=== PATIENT | male | born 1975 | race Caucasian/White ===

== ENCOUNTER → 2020-06-13 16:18 | Outpatient (CLI) | payer OTHER, SELFPAY ==
[2014-04-21 20:41] VITALS: BMI 38.0
[2020-06-13 17:47] LABS: Absolute Lymphocyte Count 2.24 X10^3/uL (0.83-4.51); Absolute Neutrophil Count 5.1 X10^3/uL (2.0-7.7); Basophil# 0.03 X10^3/uL; Basophil% 0.4 % (0-1); Eosinophil# 0.23 X10^3/uL; Eosinophils% 2.8 % (0-5); Hematocrit 45.9 % (40-54); Hemoglobin 14.7 g/dL (13.0-16.5); Lymphocyte # 2.24 X10^3/ul (4.0); Lymphocyte % 26.9 % (19-41); Mean Corpuscular Hgb 30.2 pg (27.0-32.0); Mean Corpuscular Volume 94.4 fL (80-94); Mean Platelet Vol. 10.5 fl (6.2-12.0); Monocyte% 8.4 % (0-10); NRBC Flagged by Analyzer 0 % (0-5); Neutrophil % 61.3 % (47-70); Platelet Count 211 K/mm3 (150-450); RBC Distribution Width CV 13.2 % (11.6-14.6); RBC Distribution Width SD 46.1 fl (35.1-43.9); Red Blood Count 4.86 M/mm3 (4.6-6.2); White Blood Count 8.3 K/mm3 (4.4-11.0)
[2020-06-13 18:20] LABS: Microalbumin,Random Urine < 5.0 mg/L (NO RANGE EST.)
[2020-06-13 18:21] LABS: AST(SGOT) 27 U/L (15-37); Alanine Aminotransfer ALT/SGPT 78 U/L (16-61); Albumin, Serum 3.8 g/dL (3.2-5.0); Alkaline Phosphatase 40 U/L (45-117); Anion Gap 4 (5-15); BUN 16 mg/dL (7-18); Calcium,Total 9.2 mg/dL (8.5-10.1); Chloride 106 mmol/L (98-107); EST Glomerular Filtration Rate 86 mL/min (>60); Est Glom Filt Rate - Afr Amer 105 mL/min (>60); Globulin 3.7 g/dL (2.2-4.2); Glucose 206 mg/dL (74-106); Potassium 4.1 mmol/L (3.5-5.1); Protein, Total 7.5 g/dL (6.4-8.2); Sodium Level 137 mmol/L (136-145); Thyroid Stim Hormone (TSH) 0.39 uIU/mL (0.358-3.74)
== END ==
PROVIDERS: PCP Family Medicine; Referring Provider Family Medicine; Visit Provider Family Medicine
DX: I10 Essential (primary) hypertension (principal); E66.01 Morbid (severe) obesity due to excess calories; Z68.38 Body mass index [BMI] 38.0-38.9, adult; E11.65 Type 2 diabetes mellitus with hyperglycemia
CPT/HCPCS: 36415; 80053; 82043; 82570; 84443; 85025

== ENCOUNTER → 2020-08-07 16:14 | Outpatient (CLI) | payer OTHER, SELFPAY ==
[2014-04-21 20:41] VITALS: BMI 38.0
[2020-08-07 18:19] LABS: AST(SGOT) 21 U/L (15-37); Alanine Aminotransfer ALT/SGPT 41 U/L (16-61); Albumin, Serum 3.8 g/dL (3.2-5.0); Alkaline Phosphatase 32 U/L (45-117); Anion Gap 6 (5-15); BUN 24 mg/dL (7-18); BUN/Creat Ratio 24.2 RATIO (10-20); Calcium,Total 8.9 mg/dL (8.5-10.1); Chloride 108 mmol/L (98-107); Creatinine, Serum 0.99 mg/dL (0.70-1.30); EST Glomerular Filtration Rate 87 mL/min (>60); Est Glom Filt Rate - Afr Amer 105 mL/min (>60); Glucose 115 mg/dL (74-106); Potassium 3.9 mmol/L (3.5-5.1); Protein, Total 7.8 g/dL (6.4-8.2); Sodium Level 138 mmol/L (136-145)
== END ==
PROVIDERS: PCP Family Medicine; Referring Provider Family Medicine; Visit Provider Family Medicine
DX: E11.59 Type 2 diabetes mellitus with other circulatory complications (principal)
CPT/HCPCS: 36415; 80053

== ENCOUNTER → 2021-09-24 | Outpatient (CLI) | payer OTHER, SELFPAY ==
[2021-09-24 17:58] LABS: Absolute Lymphocyte Count 1.77 X10^3/uL (0.83-4.51); Absolute Neutrophil Count 4.7 X10^3/uL (2.0-7.7); Basophil# 0.03 X10^3/uL; Basophil% 0.4 % (0-1); Eosinophil# 0.19 X10^3/uL; Eosinophils% 2.6 % (0-5); Hematocrit 45.3 % (40-54); Hemoglobin 15.1 g/dL (13.0-16.5); Lymphocyte # 1.77 X10^3/ul (0.83-4.51); Lymphocyte % 23.9 % (19-41); Mean Corp Hgb Conc 33.3 g/dL (32-36); Mean Corpuscular Hgb 30.3 pg (27.0-32.0); Mean Corpuscular Volume 90.8 fL (80-94); Mean Platelet Vol. 10.5 fl (6.2-12.0); Monocyte# 0.72 X10^3/uL; Monocyte% 9.7 % (0-10); NRBC Flagged by Analyzer 0 % (0-5); Neutrophil # 4.68 X10^3/uL (2.7-7.7); Platelet Count 177 K/mm3 (150-450); RBC Distribution Width CV 13.1 % (11.6-14.6); RBC Distribution Width SD 43.3 fl (35.1-43.9); Red Blood Count 4.99 M/mm3 (4.6-6.2); White Blood Count 7.4 K/mm3 (4.4-11.0)
[2021-09-24 18:53] LABS: AST(SGOT) 37 U/L (15-37); Alanine Aminotransfer ALT/SGPT 74 U/L (16-61); Albumin, Serum 3.7 g/dL (3.2-5.0); Alkaline Phosphatase 50 U/L (45-117); Anion Gap 6 (5-15); BUN 15 mg/dL (7-18); BUN/Creat Ratio 15.4 RATIO (10-20); Calcium,Total 9.1 mg/dL (8.5-10.1); Chloride 102 mmol/L (98-107); Creatinine, Serum 0.97 mg/dL (0.70-1.30); EST Glomerular Filtration Rate 89 mL/min (>60); Est Glom Filt Rate - Afr Amer 107 mL/min (>60); Globulin 3.8 g/dL (2.2-4.2); Glucose 335 mg/dL (74-106); Potassium 3.9 mmol/L (3.5-5.1); Protein, Total 7.5 g/dL (6.4-8.2); Sodium Level 134 mmol/L (136-145); Thyroid Stim Hormone (TSH) 0.71 uIU/mL (0.358-3.74)
== END | disposition home or self-care (01) ==
LOC: MFPLAB 16:45
PROVIDERS: PCP Family Medicine; Referring Provider Family Medicine; Visit Provider Family Medicine
DX: E11.59 Type 2 diabetes mellitus with other circulatory complications (principal); E11.22 Type 2 diabetes mellitus with diabetic chronic kidney disease; E66.01 Morbid (severe) obesity due to excess calories; F17.200 Nicotine dependence, unspecified, uncomplicated; N18.2 Chronic kidney disease, stage 2 (mild)
CPT/HCPCS: 36415; 80053; 84443; 85025

== ENCOUNTER → 2022-06-12 | Outpatient (CLI) | payer BC, SELFPAY ==
[2022-06-12 08:43] LABS: Bacteria 0 SEEN /hpf (None Seen); Mucous, Urine 0 SEEN /hpf (<or=2+); Red Blood Cells-Urine 0 SEEN /hpf (0-5); Squamous Epithelial Cells - UA 0 SEEN /hpf (0-5); White Blood Cells 0 SEEN /hpf (0-5)
[2022-06-12 10:15] LABS: Absolute Lymphocyte Count 1.69 X10^3/uL (0.83-4.51); Absolute Neutrophil Count 5.6 X10^3/uL (2.0-7.7); Basophil# 0.03 X10^3/uL; Basophil% 0.4 % (0-1); Eosinophil# 0.31 X10^3/uL; Eosinophils% 3.6 % (0-5); Hematocrit 50.2 % (40-54); Hemoglobin 16.3 g/dL (13.0-16.5); Lymphocyte # 1.69 X10^3/ul (0.83-4.51); Lymphocyte % 19.8 % (19-41); Mean Corp Hgb Conc 32.5 g/dL (32-36); Mean Corpuscular Hgb 30.4 pg (27.0-32.0); Mean Corpuscular Volume 93.5 fL (80-94); Mean Platelet Vol. 10.3 fl (6.2-12.0); Monocyte# 0.89 X10^3/uL; Monocyte% 10.4 % (0-10); NRBC Flagged by Analyzer 0 % (0-5); Neutrophil % 65.4 % (47-70); Platelet Count 203 K/mm3 (150-450); RBC Distribution Width CV 14.2 % (11.6-14.6); RBC Distribution Width SD 48.6 fl (35.1-43.9); Red Blood Count 5.37 M/mm3 (4.6-6.2); White Blood Count 8.6 K/mm3 (4.4-11.0)
[2022-06-12 10:16] LABS: Color, Urine Yellow (Yellow); Glucose, Dipstick 1000 mg/dl (Normal); Ketone-Dipstick Negative (Negative); Leukocyte Esterase-Dipstick Negative /ul (Negative); Nitrite-Dipstick Negative (Negative); Occult Blood-Urine Negative /ul (Negative); Protein-Dipstick Negative (Negative); Specific Gravity, Urine 1.015 (1.002-1.030); Urine Bilirubin Dipstick Negative (Negative); Urine Clarity Clear (Clear); Urine Urobilinogen Normal (Normal)
[2022-06-12 10:29] LABS: ALB/GLOB Ratio 0.9 RATIO (0.9-2.4); AST(SGOT) 34 U/L (15-37); Alanine Aminotransfer ALT/SGPT 68 U/L (16-61); Albumin, Serum 3.6 g/dL (3.2-5.0); Alkaline Phosphatase 51 U/L (45-117); Anion Gap 3 (5-15); BUN 12 mg/dL (7-18); BUN/Creat Ratio 13.7 RATIO (10-20); Chloride 109 mmol/L (98-107); Creatinine, Serum 0.88 mg/dL (0.70-1.30); EST Glomerular Filtration Rate 100 mL/min (>60); Est Glom Filt Rate - Afr Amer 121 mL/min (>60); Glucose 211 mg/dL (74-106); PSA,Total- Diagnostic 1.89 ng/mL (0.0-4.0); Potassium 4.3 mmol/L (3.5-5.1); Protein, Total 7.6 g/dL (6.4-8.2); Sodium Level 138 mmol/L (136-145)
== END | disposition home or self-care (01) ==
LOC: MFPLAB 08:42
PROVIDERS: PCP Family Medicine; Referring Provider Family Medicine; Visit Provider Family Medicine
DX: R36.1 Hematospermia (principal); E11.65 Type 2 diabetes mellitus with hyperglycemia; E66.01 Morbid (severe) obesity due to excess calories
CPT/HCPCS: 36415; 80053; 81001; 84153; 85025

== ENCOUNTER → 2024-03-21 | Outpatient (CLI) | payer OTHER, SELFPAY ==
[2024-03-21 10:52] LABS: Absolute Lymphocyte Count 1.95 X10^3/uL (0.83-4.51); Absolute Neutrophil Count 5.9 X10^3/uL (2.0-7.7); Basophil# 0.04 X10^3/uL; Basophil% 0.5 % (0-1); Eosinophil# 0.15 X10^3/uL; Eosinophils% 1.7 % (0-5); Hematocrit 50.3 % (40-54); Hemoglobin 16.2 g/dL (13.0-16.5); Lymphocyte # 1.95 X10^3/ul (0.83-4.51); Lymphocyte % 22.4 % (19-41); Mean Corp Hgb Conc 32.2 g/dL (32-36); Mean Corpuscular Hgb 29.6 pg (27.0-32.0); Monocyte# 0.61 X10^3/uL; NRBC Flagged by Analyzer 0 % (0-5); Neutrophil # 5.93 X10^3/uL (2.7-7.7); Neutrophil % 68.1 % (47-70); Platelet Count 192 K/mm3 (150-450); RBC Distribution Width SD 43.9 fl (35.1-43.9); Red Blood Count 5.47 M/mm3 (4.6-6.2); White Blood Count 8.7 K/mm3 (4.4-11.0)
[2024-03-21 10:59] LABS: ALB/GLOB Ratio 0.9 RATIO (0.9-2.4); AST(SGOT) 15 U/L (15-37); Alanine Aminotransfer ALT/SGPT 37 U/L (16-61); Albumin, Serum 3.6 g/dL (3.2-5.0); Alkaline Phosphatase 43 U/L (45-117); Anion Gap 5 (5-15); BUN 14 mg/dL (7-18); BUN/Creat Ratio 16.5 RATIO (10-20); Calcium,Total 9.3 mg/dL (8.5-10.1); Chloride 108 mmol/L (98-107); Cholesterol 228 mg/dL (200); Creatinine, Serum 0.85 mg/dL (0.70-1.30); EST Glomerular Filtration Rate 103 mL/min (>60); Est Glom Filt Rate - Afr Amer 125 mL/min (>60); Globulin 4.1 g/dL (2.2-4.2); Glucose 169 mg/dL (74-106); High Density Lipoprotein 42 mg/dL; Potassium 4.3 mmol/L (3.5-5.1); Protein, Total 7.7 g/dL (6.4-8.2); Sodium Level 136 mmol/L (136-145)
[2024-03-21 11:54] LABS: Microalbumin,Random Urine 18.1 mg/L (NO RANGE EST.)
== END | disposition home or self-care (01) ==
PROVIDERS: PCP Family Medicine; Referring Provider Family Medicine; Visit Provider Family Medicine
DX: E11.65 Type 2 diabetes mellitus with hyperglycemia (principal)
CPT/HCPCS: 36415; 80053; 82043; 82465; 82570; 83718; 85025

== ENCOUNTER → 2024-03-24 | Outpatient (CLI) | payer OTHER, SELFPAY ==
--- NOTE | 2024-03-24 15:56 | RAD_ITS ---
HISTORY: shortness of breath and tachycardia. TECHNIQUE: XR Chest 2 Views. COMPARISON: None. FINDINGS: CARDIOMEDIASTINAL BORDERS: Cardiac silhouette within normal limits in size. Mediastinal contour unremarkable. LUNGS: Radiographically clear. PLEURA: No pleural effusion or pneumothorax seen. OSSEOUS STRUCTURES: Spinal osteophytes present. RAD/Chest PA and Lateral IMPRESSION: No acute cardiopulmonary process identified. Electronically Signed: Judith Mckenna MD at 10:10 EST ,
[2024-03-24 17:31] LABS: Absolute Lymphocyte Count 2.34 X10^3/uL (0.83-4.51); Absolute Neutrophil Count 7.8 X10^3/uL (2.0-7.7); Basophil# 0.06 X10^3/uL; Basophil% 0.5 % (0-1); Eosinophil# 0.23 X10^3/uL; Hematocrit 52.6 % (40-54); Hemoglobin 17.3 g/dL (13.0-16.5); Lymphocyte # 2.34 X10^3/ul (0.83-4.51); Lymphocyte % 20.8 % (19-41); Mean Corp Hgb Conc 32.9 g/dL (32-36); Mean Corpuscular Hgb 29.9 pg (27.0-32.0); Mean Corpuscular Volume 90.8 fL (80-94); Mean Platelet Vol. 9.7 fl (6.2-12.0); Monocyte% 7.1 % (0-10); NRBC Flagged by Analyzer 0 % (0-5); Neutrophil # 7.77 X10^3/uL (2.7-7.7); Neutrophil % 69.3 % (47-70); Platelet Count 228 K/mm3 (150-450); RBC Distribution Width SD 43.3 fl (35.1-43.9); Red Blood Count 5.79 M/mm3 (4.6-6.2); White Blood Count 11.2 K/mm3 (4.4-11.0)
[2024-03-24 17:48] LABS: Fibrinogen 358 mg/dl (203-444)
[2024-03-24 17:59] LABS: AST(SGOT) 31 U/L (15-37); Alanine Aminotransfer ALT/SGPT 58 U/L (16-61); Albumin, Serum 4.2 g/dL (3.2-5.0); Alkaline Phosphatase 49 U/L (45-117); Anion Gap 5 (5-15); BUN 17 mg/dL (7-18); BUN/Creat Ratio 19.1 RATIO (10-20); Calcium,Total 9.9 mg/dL (8.5-10.1); Chloride 102 mmol/L (98-107); Creatinine, Serum 0.89 mg/dL (0.70-1.30); D-Dimer Quantitative (DVT/PE) 0.27 FEU/ug/m (0.27-0.49); EST Glomerular Filtration Rate 97 mL/min (>60); Est Glom Filt Rate - Afr Amer 117 mL/min (>60); Globulin 4.2 g/dL (2.2-4.2); Glucose 120 mg/dL (74-106); Potassium 3.8 mmol/L (3.5-5.1); Protein, Total 8.4 g/dL (6.4-8.2); Sodium Level 135 mmol/L (136-145)
== END | disposition home or self-care (01) ==
PROVIDERS: PCP Family Medicine; Referring Provider Family Medicine; Visit Provider Family Medicine
DX: R06.02 Shortness of breath (principal)
CPT/HCPCS: 36415; 71046; 80053; 85025; 85379; 85384; 86140

== ENCOUNTER → 2024-06-23 | Outpatient (CLI) | payer OTHER, SELFPAY ==
[2024-06-23 17:46] LABS: Absolute Lymphocyte Count 2.22 X10^3/uL (0.83-4.51); Absolute Neutrophil Count 11.2 X10^3/uL (2.0-7.7); Basophil# 0.05 X10^3/uL; Basophil% 0.3 % (0-1); Eosinophil# 0.06 X10^3/uL; Eosinophils% 0.4 % (0-5); Hemoglobin 16.7 g/dL (13.0-16.5); Lymphocyte # 2.22 X10^3/ul (0.83-4.51); Lymphocyte % 15.3 % (19-41); Mean Corp Hgb Conc 33.4 g/dL (32-36); Mean Corpuscular Hgb 30.1 pg (27.0-32.0); Mean Corpuscular Volume 90.3 fL (80-94); Mean Platelet Vol. 9.6 fl (6.2-12.0); Monocyte% 5.5 % (0-10); NRBC Flagged by Analyzer 0 % (0-5); Neutrophil # 11.22 X10^3/uL (2.7-7.7); Neutrophil % 77.6 % (47-70); Platelet Count 201 K/mm3 (150-450); RBC Distribution Width CV 14.2 % (11.6-14.6); RBC Distribution Width SD 46.7 fl (35.1-43.9); Red Blood Count 5.54 M/mm3 (4.6-6.2); White Blood Count 14.5 K/mm3 (4.4-11.0)
[2024-06-23 18:07] LABS: ALB/GLOB Ratio 1.5 RATIO (0.9-2.4); AST(SGOT) 21 U/L (<=37); Alanine Aminotransfer ALT/SGPT 43 U/L (<=46); Albumin, Serum 4.6 g/dL (3.5-5.0); Alkaline Phosphatase 37 U/L (40-129); Anion Gap 14 (5-15); BUN 19 mg/dL (4-19); BUN/Creat Ratio 21.3 RATIO (10-20); Calcium,Total 9.8 mg/dL (7.6-11.0); Carbon Dioxide 21.6 mmol/L (21.0-32.0); Chloride 100 mmol/L (98-108); Creatinine, Serum 0.88 mg/dL (0.70-1.20); EST Glomerular Filtration Rate 106 (>60); Globulin 3.1 g/dL (2.2-4.2); Glucose 168 mg/dL (70-99); Potassium 4.1 mmol/L (3.3-5.1); Protein, Total 7.7 g/dL (5.9-8.4); Sodium Level 135 mmol/L (133-145); Total Bilirubin 0.63 mg/dL (0.00-1.30)
[2024-06-23 18:13] LABS: Ammonia 19.6 umol/L (16-60)
[2024-06-23 19:56] LABS: Microalbumin,Random Urine 28.2 mg/L (NO RANGE EST.); Microalbumin:Creatinine Ratio 141.7 mg/g CRE
== END | disposition home or self-care (01) ==
LOC: MFPLAB 16:45
PROVIDERS: PCP Family Medicine; Referring Provider Family Medicine; Visit Provider Family Medicine
DX: R74.01 Elevation of levels of liver transaminase levels (principal); E11.65 Type 2 diabetes mellitus with hyperglycemia
CPT/HCPCS: 36415; 80053; 82043; 82140; 82570; 85025

== ENCOUNTER → 2024-09-29 | Outpatient (CLI) | payer OTHER, SELFPAY ==
[2024-09-29 18:20] LABS: Hematocrit 45.8 % (40-54); Hemoglobin 15.5 g/dL (13.0-16.5); Immature Granulocytes Count 0.050 X10^3/uL (0.0-0.0); Mean Corp Hgb Conc 33.8 g/dL (32-36); Mean Corpuscular Volume 92.3 fL (80-94); Mean Platelet Vol. 10.0 fl (6.2-12.0); NRBC Flagged by Analyzer 0 % (0-5); Platelet Count 246 K/mm3 (150-450); RBC Distribution Width CV 13.5 % (11.6-14.6); RBC Distribution Width SD 46.1 fl (35.1-43.9); Red Blood Count 4.96 M/mm3 (4.6-6.2); White Blood Count 13.2 K/mm3 (4.4-11.0)
[2024-09-29 19:01] LABS: AST(SGOT) 18 U/L (<=37); Alanine Aminotransfer ALT/SGPT 23 U/L (<=46); Albumin, Serum 4.4 g/dL (3.5-5.0); Alkaline Phosphatase 41 U/L (40-129); Anion Gap 11 (5-15); BUN 16 mg/dL (4-19); BUN/Creat Ratio 19.3 RATIO (10-20); Calcium,Total 9.8 mg/dL (7.6-11.0); Carbon Dioxide 27.4 mmol/L (21.0-32.0); Chloride 103 mmol/L (98-108); Globulin 2.9 g/dL (2.2-4.2); Glucose 112 mg/dL (70-99); Potassium 3.9 mmol/L (3.3-5.1)
[2024-09-29 19:38] LABS: Creatinine, Urine (random) 146.00 mg/dL (39.00-259.00); Microalbumin,Random Urine < 12.0 mg/L (<20 mg/L)
--- OUTSIDE RECORDS SUMMARY | 2024-09-29 20:50 | XMS RPT_ITS | CCD ---
Author Organization [facility] Care Team Providers Care Cargo Mate Name Role Phone Mellisa VALENTINE, Robert Hicks Unavailable Kurtis VALENTINE, Dr. Orozco Primary Care Provider Kurtis VALENTINE, Dr. Orozco Attending Provider [phone] Dr. Ernesto Hull MD Referring Provider [phone] Ernesto Hull Attending Unavailable Hull, Ernesto Primary Care Unavailable Hull, Ernesto Attending Unavailable Hull, Ernesto Primary Care Unavailable Hull, Ernesto Referring Unavailable Hull, Ernesto Attending Unavailable Hull, Ernesto Primary Care Unavailable Hull, Ernesto Referring Unavailable Hull, Ernesto Referring Unavailable Hull, Ernesto Attending Unavailable Hull, Ernesto Primary Care Unavailable ASHLEIGH, RANDALL Attending Unavailable ASHLEIGH, RANDALL Referring Unavailable ASHLEIGH, RANDALL Attending Unavailable ASHLEIGH, RANDALL Referring Unavailable ASHLEIGH, RANDALL Attending Unavailable Allergies Allergy Classification Reported Allergen(s) Allergy Type Date of Onset Reaction(s) Facility (6 sources) Ethinyl Estradiol / Levonorgestrel; Translations: [LEVONORGESTREL- ETHINYL ESTRAD] Drug Allergy 05-05-2024 Other: See Comments [facility] Medications Current Medications Medication Drug Class(es) Dates Sig (Normalized) Sig (Original) acetaminophen 325 mg / oxyCODONE hydrochloride 5 mg oral tablet (3 sources) Opioid Agonist Start: 04-21-2014 Oxycodone-Acetamin ophen 1 TABLET tablet Active 1 - 2 {tbl} PO EVERY 4 HOURS NEEDED as needed for Pain April 21, 2014 1:00am Start: 04-21-2014 take 1 tablet by robbie th every four hours as needed Oxycodone-Acetaminophen Active 1 - 2 TABLET PO EVERY 4 HOURS NEEDED April 21, 2014 1:00am amLODIPine 5 mg oral tablet (5 sources) Dihydropyridine Calcium Channel Alice amLODIPine (NORVASC) 5 mg tablet Take by mouth once daily. Active amoxicillin 500 mg oral tablet (3 sources) Penicillin-class Antibacterial Start: 04-21-19 take 1 tablet by mouth three times daily Amoxicillin 500 MG tablet Active 500 mg PO THREE TIMES A DAY April 21, 2014 1:00am benoxinate hydrochloride 4 mg/ml / fluorescein sodium 3 mg/ml ophthalmic solution (6 sources) Diagnostic Dye Start: 07-02-19 End: 07-02-19 fluorescein-benoxin ate 0.3-0.4 % 1 drop (FLURESS) Start: 07-01-2024 End: 07-01-2024 1 drop, BOTH EYES, DIRECT ED, Starting on Thu07/01/24 at 1000, Until Thu07/01/24 at 2159, Administer for applanation tonometry. In the event of a Fluress shortage, administer [place]-Fluor 1 drop into both eyes as directed for applanation tonometry, [facility]HT CLINIC MED ORDERS Start: 06-03-2024 End: 06-03-2024 fluorescein-benoxinate 0.3-0 .4 % 1 Drop (FLURESS) Start: 06-03-2024 End: 06-03-2024 1 Drop, BOTH EYES, DIRECT ED, Starting on Thu06/03/24 at 1030, Until Thu06/03/24 at 2229, Administer for applanation tonometry. In the event of a Fluress shortage, administer [place]-Fluor 1 drop into both eyes as directed for applanation tonometry, [facility]HT CLINIC MED ORDERS Start: 05-05-2024 End: 05-05-2024 fluorescein-benoxinate 0.3-0 .4 % 1 Drop (FLURESS) Start: 05-05-2024 End: 05-05-2024 1 Drop, BOTH EYES, DIRECT ED, Starting on Thu05/05/24 at 0930, Until Thu05/05/24 at 2129, Administer for applanation tonometry. In the event of a Fluress shortage, administer [place]-Fluor 1 drop into both eyes as directed for applanation tonometry modified 24 hr metFORMIN hydrochloride 500 mg extended release oral tablet (5 sources) Biguanide take 1 tablet by mouth once daily at breakfast metFORMIN ER (GLUMETZA) 500 mg 24 hr tablet Take 500 mg by mouth daily with breakfast. Active naproxen 500 mg oral tablet (3 sources) Nonsteroidal Anti-inflammatory Drug Start: 04-21-19 take 1 tablet by mouth twice daily Naproxen 500 MG tablet Active 500 mg PO TWICE A DAY April 21, 2014 1:00am phenylephrine hydrochloride 25 mg/ml ophthalmic solution (6 sources) alpha-1 Adrenergic Agonist Start: 07-02-19 End: 07-02-19 PHENYLephrine 2.5 % 1 drop (AK-DILATE, LINDA-SYNEPHRINE) Start: 07-01-2024 End: 07-01-2024 1 drop, BOTH EYES, DIRECT ED, Starting on Thu07/01/24 at 1000, Until Thu07/01/24 at 2159, Administer for dilation PROTECT FROM LIGHT, OPHT CLINIC MED ORDERS Start: 06-03-2024 End: 06-03-2024 PHENYLephrine 2.5 % 1 Drop ( AK-DILATE, LINDA-SYNEPHRINE) Start: 06-03-2024 End: 06-03-2024 1 Drop, BOTH EYES, DIRECT ED, Starting on Thu06/03/24 at 1030, Until Thu06/03/24 at 2229, Administer for dilation PROTECT FROM LIGHT, OPHT CLINIC MED ORDERS Start: 05-05-2024 End: 05-05-2024 PHENYLephrine 2.5 % 1 Drop ( AK-DILATE, LINDA-SYNEPHRINE) Start: 05-05-2024 End: 05-05-2024 1 Drop, BOTH EYES, DIRECT ED, Starting on Thu05/05/24 at 0930, Until Thu05/05/24 at 2129, Administer for dilation PROTECT FROM LIGHT predniSONE 5 mg oral tablet (5 sources) Start: 07-01-2024 End: 08-12-2024 take 2 tablets by mouth once daily, then take 1 tablet by mouth once daily, then take 0.5 tablet by mouth once daily predniSONE (DELTASONE) 5 mg tablet Take 2 tablets by mouth once daily for 14 days, THEN 1 tablet once daily for 14 days, THEN 0.5 tablets once daily for 14 days. 49 tablet 07/01/2024 08/12/2024 Active Start: 05-13-2024 End: 07-01-2024 take 4 tablets by mouth once daily, then take 3 tablets by mouth once daily, then take 2.5 tablets by mouth once daily, then take 2 tablets by mouth once daily, then take 1.5 tablets by mouth once daily, then take 1 tablet by mouth once daily, then take 0.5 tablet by mouth once daily predniSONE (DELTASONE) 20 mg tablet Take 4 tablets by mouth once daily for 7 days, THEN 3 tablets once daily for 7 days, THEN 2.5 tablets once daily for 7 days, THEN 2 tablets once daily for 7 days, THEN 1.5 tablets once daily for 7 days, THEN 1 tablet once daily for 7 days, THEN 0.5 tablets once daily for 7 days. 102 tablet 05/13/2024 07/01/2024 Discontinued proparacaine hydrochloride 5 mg/ml ophthalmic solution (3 sources) Local Anesthetic Start: 07-01-2024 End: 07-01-2024 proparacaine 0.5 % 1 drop (ALCAINE) Start: 06-03-2024 End: 06-03-2024 proparacaine 0.5 % 1 Drop (A LCAINE) Start: 05-05-2024 End: 05-05-2024 proparacaine 0.5 % 1 Drop (A LCAINE) ramipril 5 mg oral capsule (2 sources) Angiotensin Converting Enzyme Inhibitor Start: 06-23-2024 take 1 capsule by mouth once daily ramipril (ALTACE) 5 mg capsule Take 1 capsule by mouth once daily. 06/23/2024 Active tropicamide 10 mg/ml ophthalmic solution (6 sources) Anticholinergic Start: 07-01-2024 End: 07-01-2024 tropicamide 1 % 1 drop (MYDRIACYL) Start: 07-01-2024 End: 07-01-2024 1 drop, BOTH EYES, DIRECT ED, Starting on Thu07/01/24 at 1000, Until Thu07/01/24 at 2159, Administer for dilation, OPHT CLINIC MED ORDERS Start: 06-03-2024 End: 06-03-2024 tropicamide 1 % 1 Drop (MYDR IACYL) Start: 06-03-2024 End: 06-03-2024 1 Drop, BOTH EYES, DIRECT ED, Starting on Thu06/03/24 at 1030, Until Thu06/03/24 at 2229, Administer for dilation, OPHT CLINIC MED ORDERS Start: 05-05-2024 End: 05-05-2024 tropicamide 1 % 1 Drop (MYDR IACYL) Start: 05-05-2024 End: 05-05-2024 1 Drop, BOTH EYES, DIRECT ED, Starting on Thu05/05/24 at 0930, Until Thu05/05/24 at 2129, Administer for dilation varenicline (2 sources) Partial Cholinergic Nicotinic Agonist Start: 06-23-2024 varenicline tartrate (CHANTIX) 0.5 mg (11)- 1 mg (42) tablet TAKE DIRECTED BY PACKAGE 06/23/2024 Active Vitamin B Complex (5 sources) vitamin B comple x (B COMPLEX ORAL) Take by mouth. Active Completed/Discontinued Medications Medication Drug Class(es) Dates Sig (Normalized) Sig (Original) diphenhydrAMINE hydrochloride 2.5 mg/ml oral solution (1 source) Histamine-1 Receptor Antagonist Start: 05-05-2024 End: 05-05-2024 diphenhydrAMINE 12.5-50 mg oral liquid (BENADRYL) fluorescein 250 mg injection (2 sources) Start: 05-05-2024 End: 05-05-2024 fluorescein 250 mg injection Start: 05-05-2024 End: 05-05-2024 250 mg, INTRAVENOUS, ONCE, 1 dose, On Thu05/05/24 at 0930 Problems Active Problems Problem Classification Problem Date Documented Date Episodic/Chronic Diabetes mellitus with complications (1 source) Type 2 diabetes mellitus with hyperglycemia; Translations: [Type 2 diabetes mellitus with hyperglycemia] Onset: 04-14-2024 Chronic Essential hypertension (5 sources) Hypertensive disorder; Translations: [Essential (primary) hypertension] Onset: 05-13-2012 05-13-2012 Chronic Inflammation; infection of eye (except that caused by tuberculosis or sexually transmitteddisease) (4 sources) Multifocal choroiditis; 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, bilateral] Onset: 07-01-2024 05-05-2024 Chronic Unclassified (1 source) Elevation of levels of liver transaminase levels; Translations: [Elevation of levels of liver transaminase levels] Onset: 06-24-2024 Past or Other Problems Problem Classification Problem Date Documented Da te Episodic/Chronic Cardiac dysrhythmias (5 sources) Palpitations; Translations: [Palpitations] Onset: 05-13-2012 05-13-2012 Episodic Other lower respiratory disease (2 sources) Shortness of breath; Translations: [Shortness of breath] Onset: 03-25-2024 Episodic Results Test Name Value Interpretation Reference Range Facility [facility] MICHELLE SUTTON ([id number]) 1975 M Date Time Provider Department 09/07/24 RANDALL HUGGINS During your visit today, we recorded the following information about you: Janeen Larkin 09/07/2024 11:30 AM Signed 1) He's calling as he came in on 09/02 not knowing that his appt was cx'd, so he was rescheduled to 7/3. Unfortunately, due to the holiday, he cannot get 7/3 off from work and needs to reschedule this and is hoping to get in soon. 2) He said he also needs a rx refill of prednisone. He said he's been taking a half of a pill (2.5-mg?) From the notes, it looks like he was to discontinue this - is a rx warranted if his follow up is being pushed out further? Randall Huggins MD filed at 07/01/2024 11:41 AM Status: Signed Here for f/u regarding probable AZOOR Improving symptoms Flashes resolved Prednisone 10 mg Posterior uveitis, both eyes Course: - Noticing gradual temporal visual field deficit OU x years sometimes a/w shimmering edges - A few months ago, started having pressure OU, initially started with OS but now OD is worsening as well - Burning sensation also present but more intermittent - better on po prednisone - today on 10 mg prednisone, doing better, lesion appear to be inactive on exam and imaging Workup: - none to date ROS: POSITIVE - chronic tremor in left hand, rare lip ulcer, occasional orthostatic dizziness, tinnitus x years (has seen ENT, 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); remote h/o chlamydia as a teen but no other known STI exposure; has a pet dog NEGATIVE - denies any recent weight loss/gain, fevers/chills, night sweats, fatigue, generalized weakness, easy bruising/bleeding, intolerance to heat or cold, sicca symptoms, nasal ulcers, oral ulcers, genital ulcers, difficulty swallowing, chest pain, shortness of breath, wheezing, cough, blood in sputum, nausea, vomiting, abdominal pain, diarrhea, changes in bowel or bladder patterns, change in urine, weakness/numbness/tin gling of limbs/digits, muscle pain, joint aches/pains, rash, hives, sun sensitivity, hair loss, skin discoloration, headache, seizure, hearing loss, depression, anxiety, enlarged lymph nodes. Denies recent foreign travel. Not a leonie, does not eat game Imaging: - 05/05/24: - FAF: confluent area of hypoAF in peripapillary area with hypoAF spots centered around the nerve; all areas of hypoAF are surrounded by a rim of hyperAF - FA: peripapillary window defect OU and staining of peripheral CR lesions, no vascular leakage - OCT: atrophy peripapillary and in areas of CR lesions; punctate opacities in vitreous cavity c/w cells; mild ERM Left eye -06/03/24 FAF improved hyperAF Both Eyes, OCT improved EZ Both Eyes, OCTA - no CNVM - 07/01/24: -FAF improved hyperAF Both Eyes, OCT improved EZ Both Eyes, OCTA - no CNVM Meds: - Prednisone 10 mg currently(started at 80 mg) Impression/PLAN: - Ddx includes AZOOR, sarcoidosis; relentless placoid chorioretinitis, birdshot chorioretinopathy (though no leakage on FA), less likely infectious such as TB, syphilis, less likely PIC/MFC spectrum - W/u negative syphilis, TB, ABUNDIO [id number] - improved on po prednisone - inactive today on 10 mg prednisone, would need custodial immunosuppression, - Ozurdex Both Eyes vs stay on 10 mg prednisone for now - Refer to Rhuem,suggest to start Humira given the posterior uveitis - taper to 5 mg prednisone for 2 then 2.5 mg for 2 weeks then stop -encouraged close monitoring of BS checked it once 289 would like him to check it more frequently PCP is aware that he is on prednisonen I have confirmed and edited as necessary the relevant HPI, ophthalmic history, ROS, and the neuro exam findings as obtained by others. I have seen and examined Michelle Sutton. I have discussed the case and the management of this patient's care with the Resident/Fellow, if applicable. I also have reviewed and agree with the assessment and plan as stated above and agree with all of its relevant components. Janeen Larkin 09/13/2024 10:36 AM Signed I left him a message and asked him to give me a call back. Janeen Larkin 09/15/2024 9:41 AM Signed I received a message from our appt office that he tried reaching the office again. I called him back and got his VM. 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 If he wants to come in next week, can we try to put him on for either Thursday or Thu? Parul Alexandre, GLORIA 09/19/2024 6:34 AM Signed 09/29 at 10:15 Janeen Larkin 09/19/2024 9:18 AM Signed I left him a message about coming in on 09/29 at 10:15 and asked him to give me a call back to confirm. Allergies As of Date: 09/07/2024 Noted Allergy Reaction SEASONALE (LEVONORGESTREL-ETHIN YL*05/05/2024 14 - Other: Se (more content not included)... Normal [facility] Microalb:Creat Ratio,Random URon 09-01-2024 MALB:CREAT 14.2 mg/g CRE Normal [facility] Comment on above: Order Comment: Order Date: 06/23/24Order Info: [id number] - MIALB Result Comment: AMENDED REPORT 09/01/24 1219 MALB:CREAT previously reported as: 141.7 mg/g CRE Performed By: #### L 500.4050, L501.4900, L100.0100, L502.0250, L501.6400 #### [facility] [address] [place], [place], [id number] FUNDUS AUTOFLUORESCENCE PHOT O (FAF) OU (BOTH EYES)on 07-01-2024 [facility] FUNDUS PHOTOS OU (BOTH EYES) on 07-01-2024 [facility] Radiology Study observation (narrative) [facility] OCT ANGIOGRAPHY OU (BOTH EYE S)on 07-01-2024 [facility] Radiology Study observation (narrative) [facility] OCT MACULA CIRRUS OU (BOTH E YES)on 07-01-2024 [facility] Radiology Study observation (narrative) [facility] Absolute neutrophil countOrd ered By: Ernesto Hull on 06-23-2024 Neutrophils (Bld) [#/Vol] 11.2 10*3/uL High 2.0-7.7 [facility] Albumin DL <= 20 mg/L (U) [M ass/Vol]Ordered By: Ernesto Hull on 06-23-2024 Urine Random Microalbumin 28.2 mg/L NO RANGE E [facility]. [facility] Ammoniaon 06-23-2024 Ammonia (P) [Moles/Vol] 19.6 umol/L Normal 16-60 [facility] Comment on above: Performed By: #### L 500.4050, L501.4900, L100.0100, L502.0250, L501.6400 #### [facility] [address] [place], [place], [id number] Anion gap in Serum or Plasma Ordered By: Ernesto Hull on 06-23-2024 Anion gap [Moles/Vol] 14 mmol/L 5-15 [facility] BUN/creatinine ratioOrdered By: Ernesto Hull on 06-23-2024 Urea nitrogen/Creatinine [Mass ratio] 21.3 mg/mg High 10-20 [facility] Basophil percentageOrdered B y: Ernesto Hull on 06-23-2024 Basophils/100 WBC (Bld) 0.3 % 0-1 [facility] Bilirubin, totalOrdered By: Ernesto Hull on 06-23-2024 Bilirubin [Mass/Vol] 0.63 mg/dL 0.00-1.30 [facility] CBC W/Diff, Automatedon 04- 0-2024 Absolute Lymph 2.22 X10 3/uL Normal 0.83-4.51 [facility] Comment on above: Performed By: #### L 500.4050, L501.4900, L100.0100, L502.0250, L501.6400 #### [facility] [address] [place], [address] Absolute Neut 11.2 X10 3/uL High 2.0-7.7 [facility] Comment on above: Performed By: #### L 500.4050, L501.4900, L100.0100, L502.0250, L501.6400 #### [facility] [address] [place], [address] Basophils/100 WBC (Bld) 0.3 % Normal 0-1 [facility] Comment on above: Performed By: #### L 500.4050, L501.4900, L100.0100, L502.0250, L501.6400 #### [facility] [address] [place], [address] Eosinophils/100 WBC (Bld) 0.4 % Normal 0-5 [facility] Comment on above: Performed By: #### L 500.4050, L501.4900, L100.0100, L502.0250, L501.6400 #### [facility] [address] [place], [address] Erythrocyte distribution width (RBC) [Ratio] 14.2 % Normal 11.6-14.6 [facility] Comment on above: Performed By: #### L 500.4050, L501.4900, L100.0100, L502.0250, L501.6400 #### [facility] [address] [place], [address] Hematocrit (Bld) [Volume fraction] 50.0 % Normal 40-54 [facility] Comment on above: Performed By: #### L 500.4050, L501.4900, L100.0100, L502.0250, L501.6400 #### [facility] [address] [place], [address] Hemoglobin (Bld) [Mass/Vol] 16.7 g/dL High 13.0-16.5 [facility] Comment on above: Performed By: #### L 500.4050, L501.4900, L100.0100, L502.0250, L501.6400 #### [facility] [address] [place], [address] IG% 0.900 Normal 0.0-0.9 [facility] Comment on above: Result Comment: IG% - Immature Granulocytes (promyelocytes, myelocytes and metamyelocytes) > 1% indicates that a LEFT SHIFT is Present. Performed By: #### L 500.4050, L501.4900, L100.0100, L502.0250, L501.6400 #### [facility] [address] [place], [address] Lymphocytes/100 WBC (Bld) 15.3 % Low 19-41 [facility] Comment on above: Performed By: #### L 500.4050, L501.4900, L100.0100, L502.0250, L501.6400 #### [facility] [address] [place], [address] MCH (RBC) [Entitic mass] 30.1 pg Normal 27.0-32.0 [facility] Comment on above: Performed By: #### L 500.4050, L501.4900, L100.0100, L502.0250, L501.6400 #### [facility] [address] [place], [address] MCHC (RBC) [Mass/Vol] 33.4 g/dL Normal 32-36 [facility] Comment on above: Performed By: #### L 500.4050, L501.4900, L100.0100, L502.0250, L501.6400 #### [facility] [address] [place], [address] MCV (RBC) [Entitic vol] 90.3 fL Normal 80-94 [facility] Comment on above: Performed By: #### L 500.4050, L501.4900, L100.0100, L502.0250, L501.6400 #### [facility] [address] [place], [address] Monocytes/100 WBC (Bld) 5.5 % Normal 0-10 [facility] Comment on above: Performed By: #### L 500.4050, L501.4900, L100.0100, L502.0250, L501.6400 #### [facility] [address] [place], [address] Neutrophils/100 WBC (Bld) 77.6 % High 47-70 [facility] Comment on above: Performed By: #### L 500.4050, L501.4900, L100.0100, L502.0250, L501.6400 #### [facility] [address] [place], [address] Nucleated RBC (Bld) [#/Vol] 0 10*3/uL Normal 0-5 [facility] Comment on above: Performed By: #### L 500.4050, L501.4900, L100.0100, L502.0250, L501.6400 #### [facility] [address] [place], [address] Platelet mean volume (Bld) [Entitic vol] 9.6 fL Normal 6.2-12.0 [facility] Comment on above: Performed By: #### L 500.4050, L501.4900, L100.0100, L502.0250, L501.6400 #### [facility] [address] [place], [address] Platelets (Bld) [#/Vol] 201 10*3/uL Normal 150-450 [facility] Comment on above: Performed By: #### L 500.4050, L501.4900, L100.0100, L502.0250, L501.6400 #### [facility] [address] [place], [address] RBC (Bld) [#/Vol] 5.54 10*6/uL Normal 4.6-6.2 [facility] Comment on above: Performed By: #### L 500.4050, L501.4900, L100.0100, L502.0250, L501.6400 #### [facility] [address] [place], [address] RDW SD 46.7 fl High 35.1-43.9 [facility] Comment on above: Performed By: #### L 500.4050, L501.4900, L100.0100, L502.0250, L501.6400 #### [facility] [address] [place], [address] WBC (Bld) [#/Vol] 14.5 10*3/uL High 4.4-11.0 [facility] Comment on above: Performed By: #### L 500.4050, L501.4900, L100.0100, L502.0250, L501.6400 #### [facility] [address] [place], [address] Carbon dioxide, total [Moles /volume] in Central venous bloodOrdered By: Ernesto Hull on 06-23-2024 CO2 [Moles/Vol] 21.6 mmol/L 21.0-32.0 [facility] Chloride assayOrdered By: Yared Hull on 06-23-2024 Chloride [Moles/Vol] 100 mmol/L 98-108 [facility] Comprehensive Metabolic Prof ilon 06-23-2024 Albumin [Mass/Vol] 4.6 g/dL Normal 3.5-5.0 [facility] Comment on above: Order Comment: Order Date: 06/23/24Order Info: [id number] - CMP Performed By: #### L 500.4050, L501.4900, L100.0100, L502.0250, L501.6400 #### [facility] [address] [place], [address] Albumin/Globulin [Mass ratio] 1.5 {ratio} Normal 0.9-2.4 [facility] Comment on above: Order Comment: Order Date: 06/23/24Order Info: [id number] - CMP Performed By: #### L 500.4050, L501.4900, L100.0100, L502.0250, L501.6400 #### [facility] [address] [place], [address] ALK PHOS 37 U/L Low 40-129 [facility] Comment on above: Order Comment: Order Date: 06/23/24Order Info: [id number] - CMP Performed By: #### L 500.4050, L501.4900, L100.0100, L502.0250, L501.6400 #### [facility] [address] [place], [address] ALT [Catalytic activity/Vol] 43 U/L Normal <=46 [facility] Comment on above: Order Comment: Order Date: 06/23/24Order Info: [id number] - CMP Performed By: #### L 500.4050, L501.4900, L100.0100, L502.0250, L501.6400 #### [facility] [address] [place], [address] AST [Catalytic activity/Vol] 21 U/L Normal <=37 [facility] Comment on above: Order Comment: Order Date: 06/23/24Order Info: [id number] - CMP Performed By: #### L 500.4050, L501.4900, L100.0100, L502.0250, L501.6400 #### [facility] [address] [place], [address] Bilirubin [Mass/Vol] 0.63 mg/dL Normal 0.00-1.30 [facility] Comment on above: Order Comment: Order Date: 06/23/24Order Info: [id number] - CMP Performed By: #### L 500.4050, L501.4900, L100.0100, L502.0250, L501.6400 #### [facility] [address] [place], [address] BUN/CRE 21.3 RATIO High 10-20 [facility] Comment on above: Order Comment: Order Date: 06/23/24Order Info: [id number] - CMP Performed By: #### L 500.4050, L501.4900, L100.0100, L502.0250, L501.6400 #### [facility] [address] [place], [address] Calcium [Mass/Vol] 9.8 mg/dL Normal 7.6-11.0 [facility] Comment on above: Order Comment: Order Date: 06/23/24Order Info: [id number] - CMP Performed By: #### L 500.4050, L501.4900, L100.0100, L502.0250, L501.6400 #### [facility] [address] [place], [address] Chloride [Moles/Vol] 100 mmol/L Normal 98-108 [facility] Comment on above: Order Comment: Order Date: 06/23/24Order Info: [id number] - CMP Performed By: #### L 500.4050, L501.4900, L100.0100, L502.0250, L501.6400 #### [facility] [address] [place], [address] CO2 [Moles/Vol] 21.6 mmol/L Normal 21.0-32.0 [facility] Comment on above: Order Comment: Order Date: 06/23/24Order Info: 0786-1 - CMP Performed By: #### L 500.4050, L501.4900, L100.0100, L502.0250, L501.6400 #### [facility] [address] [place], [address] Creatinine [Mass/Vol] 0.88 mg/dL Normal 0.70-1.20 [facility] Comment on above: Order Comment: Order Date: 06/23/24Order Info: 0786-1 - CMP Performed By: #### L 500.4050, L501.4900, L100.0100, L502.0250, L501.6400 #### [facility] [address] [place], [address] GAP 14 Normal 5-15 [facility] Comment on above: Order Comment: Order Date: 06/23/24Order Info: 0786-1 - CMP Performed By: #### L 500.4050, L501.4900, L100.0100, L502.0250, L501.6400 #### [facility] [address] [place], [address] GFR/1.73 sq M.predicted among non-blacks MDRD (S/P/Bld) [Vol rate/Area] 106 mL/min/{1.73_m2} Normal >60 [facility] Comment on above: Order Comment: Order Date: 06/23/24Order Info: 0786-1 - CMP Result Comment: mL/m in/1.73m2 CKD-EPI Creatinine Equation (2020) Performed By: #### L 500.4050, L501.4900, L100.0100, L502.0250, L501.6400 #### [facility] [address] [place], [address] Globulin (S) [Mass/Vol] 3.1 g/dL Normal 2.2-4.2 [facility] Comment on above: Order Comment: Order Date: 06/23/24Order Info: 0786-1 - CMP Performed By: #### L 500.4050, L501.4900, L100.0100, L502.0250, L501.6400 #### [facility] [address] [place], [address] Glucose [Mass/Vol] 168 mg/dL High 70-99 [facility] Comment on above: Order Comment: Order Date: 06/23/24Order Info: 0786-1 - CMP Performed By: #### L 500.4050, L501.4900, L100.0100, L502.0250, L501.6400 #### [facility] [address] [place], [address] Potassium [Moles/Vol] 4.1 mmol/L Normal 3.3-5.1 [facility] Comment on above: Order Comment: Order Date: 06/23/24Order Info: 0786-1 - CMP Performed By: #### L 500.4050, L501.4900, L100.0100, L502.0250, L501.6400 #### [facility] [address] [place], [address] Sodium [Moles/Vol] 135 mmol/L Normal 133-145 [facility] Comment on above: Order Comment: Order Date: 06/23/24Order Info: 0786-1 - CMP Performed By: #### L 500.4050, L501.4900, L100.0100, L502.0250, L501.6400 #### [facility] [address] [place], [address] T PROT 7.7 g/dL Normal 5.9-8.4 [facility] Comment on above: Order Comment: Order Date: 06/23/24Order Info: 0786-1 - CMP Performed By: #### L 500.4050, L501.4900, L100.0100, L502.0250, L501.6400 #### [facility] [address] [place], [place], [address] Urea nitrogen [Mass/Vol] 19 mg/dL Normal 4-19 [facility] Comment on above: Order Comment: Order Date: 06/23/24Order Info: 0786-1 - CMP Performed By: #### L 500.4050, L501.4900, L100.0100, L502.0250, L501.6400 #### [facility] [address] [place], [place], [address] Creatinine Unsp time (U) [Ma ss/Vol]Ordered By: Ernesto Hull on 06-23-2024 Creatinine (U) [Mass/Vol] 199.00 mg/dL 39.00-25 9.00 [facility] Eosinophil percentageOrdered By: Ernesto Hull on 06-23-2024 Eosinophils/100 WBC (Bld) 0.4 % 0-5 [facility] Erythrocyte distribution wid th (RBC) [Ratio]Ordered By: Ernesto Hull on 06-23-2024 Erythrocyte distribution width (RBC) [Entitic vol] 46.7 fL High 35.1-43.9 [facility] Erythrocyte distribution wid th ratioOrdered By: Ernesto Hull on 06-23-2024 Erythrocyte distribution width (RBC) [Ratio] 14.2 % 11.6-14.6 [facility] GFR/1.73 sq M.predicted gaston g non-blacks MDRD (S/P/Bld) [Vol rate/Area]Ordered By: Ernesto Hull on 06-23-2024 Estimated GFR (MDRD) Non-Af Amer 106 >60 [facility] Comment on above: mL/min/1.73m2 CKD-EP I Creatinine Equation (2020) Hematocrit Auto (Bld) [Volum e fraction]Ordered By: Ernesto Hull on 06-23-2024 Hematocrit (Bld) [Volume fraction] 50.0 % 40-54 [facility] Hemoglobin measurementOrdere d By: Ernesto Hull on 06-23-2024 Hemoglobin (Bld) [Mass/Vol] 16.7 g/dL High 13.0-16.5 [facility] Immature granulocytes/100 WB C Auto (Bld)Ordered By: Ernesto Hull on 06-23-2024 Immature granulocytes/100 WBC (Bld) 0.900 % 0.0-0.9 [facility] Comment on above: IG% - Immature Granu locytes (promyelocytes, myelocytes and metamyelocytes) > 1% indicates that a LEFT SHIFT is Present. Laboratory - Chemistry and C hemistry - challengeOrdered By: Ernesto Hull on 06-23-2024 AST [Catalytic activity/Vol] 21 U/L <38 [facility] Lymphocytes Auto (Unsp spec) [#/Vol]Ordered By: Ernesto Hull on 06-23-2024 Lymphocytes (Bld) [#/Vol] 2.22 10*3/uL 0.83-4.5 1 [facility] Lymphocytes/100 WBC Auto (Un sp spec)Ordered By: Ernesto Hull on 06-23-2024 Lymphocytes/100 WBC (Bld) 15.3 % Low 19-41 [facility] MCV (mean corpuscular volume ) determinationOrdered By: Ernesto Hull on 06-23-2024 MCV (RBC) [Entitic vol] 90.3 fL 80-94 [facility] Mean corpuscular hemoglobin (MCH) determinationOrdered By: Ernesto Hull on 06-23-2024 MCH (RBC) [Entitic mass] 30.1 pg 27.0-32.0 [facility] Mean corpuscular hemoglobin concentration (MCHC) determinationOrdered By: Ernesto Hull on 06-23-2024 MCHC (RBC) [Mass/Vol] 33.4 g/dL 32-36 [facility] Mean platelet volume determi nationOrdered By: Ernesto Hull on 06-23-2024 Platelet mean volume (Bld) [Entitic vol] 9.6 fL 6.2-12.0 [facility] Microalbumin/creat ratio urO rdered By: Ernesto Hull on 06-23-2024 Urine Microalbumin/Creatinine Ratio 141.7 mg/g CRE [facility] Monocyte percentageOrdered B y: Ernesto Hull on 06-23-2024 Monocytes/100 WBC (Bld) 5.5 % 0-10 [facility] Neutrophil percentageOrdered By: Ernesto Hull on 06-23-2024 Neutrophils/100 WBC (Bld) 77.6 % High 47-70 [facility] Nucleated red blood cell per centageOrdered By: Ernesto Hull on 06-23-2024 Nucleated RBC/100 WBC (Bld) [Ratio] 0 % 0-5 [facility] Platelet countOrdered By: Yared Hull on 06-23-2024 Platelets (Bld) [#/Vol] 201 10*3/uL 150-450 [facility] Potassium (Unsp spec) [Mass/ Vol]Ordered By: Ernesto Hull on 06-23-2024 Potassium [Moles/Vol] 4.1 mmol/L 3.3-5.1 [facility] RBC Auto (Bld) [#/Vol]Ordere d By: Ernesto Hull on 06-23-2024 RBC (Bld) [#/Vol] 5.54 10*6/uL 4.6-6.2 [facility] Serum creatinine measurement (mass/volume)Ordered By: Ernesto Hull on 06-23-2024 Creatinine [Mass/Vol] 0.88 mg/dL 0.70-1.20 [facility] Serum globulin measurementOr dered By: Ernesto Hull on 06-23-2024 Globulin (S) [Mass/Vol] 3.1 g/dL 2.2-4.2 [facility] Serum glucose measurement (m ass/volume)Ordered By: Ernesto Hull on 06-23-2024 Glucose [Mass/Vol] 168 mg/dL High 70-99 [facility] Serum or plasma alanine nieves otransferase (ALT) measurementOrdered By: Ernesto Hull on 06-23-2024 ALT [Catalytic activity/Vol] 43 U/L <47 [facility] Serum or plasma albumin jeff urement (mass/volume)Ordered By: Ernesto Hull on 06-23-2024 Albumin [Mass/Vol] 4.6 g/dL 3.5-5.0 [facility] Serum or plasma albumin/glob ulin mass ratioOrdered By: Ernesto Hull on 06-23-2024 Albumin/Globulin [Mass ratio] 1.5 {ratio} 0.9-2.4 [facility] Serum or plasma alkaline chantal sphatase measurementOrdered By: Ernesto Hull on 06-23-2024 ALP [Catalytic activity/Vol] 37 U/L Low 40-129 [facility] Serum or plasma calcium jeff urement (mass/volume)Ordered By: Ernesto Hull on 06-23-2024 Calcium [Mass/Vol] 9.8 mg/dL 7.6-11.0 [facility] Serum or plasma urea nitroge n measurement (mass/volume)Ordered By: Ernesto Hull on 06-23-2024 Urea nitrogen [Mass/Vol] 19 mg/dL 4-19 [facility] Sodium levelOrdered By: Ernesto Hull on 06-23-2024 Sodium [Moles/Vol] 135 mmol/L 133-145 [facility] Total proteinOrdered By: Elizabeth Hull on 06-23-2024 Protein [Mass/Vol] 7.7 g/dL 5.9-8.4 [facility] Venous blood ammonia measure mentOrdered By: Ernesto Hull on 06-23-2024 Ammonia (P) [Moles/Vol] 19.6 umol/L 16-60 [facility] White blood cell (WBC) count Ordered By: Ernesto Hull on 06-23-2024 WBC (Bld) [#/Vol] 14.5 10*3/uL High 4.4-11.0 [facility] FUNDUS AUTOFLUORESCENCE PHOT O (FAF) OU (BOTH EYES)on 06-03-2024 [facility] Radiology Study observation (narrative) [facility] FUNDUS PHOTOS OU (BOTH EYES) on 06-03-2024 [facility] Radiology Study observation (narrative) [facility] OCT ANGIOGRAPHY OU (BOTH EYE S)on 06-03-2024 [facility] Radiology Study observation (narrative) [facility] OCT MACULA CIRRUS OU (BOTH E YES)on 06-03-2024 [facility] Radiology Study observation (narrative) [facility] Tl 05-16-2024 CNPN Telephone ([facility]) MICHELLE SUTTON ([id number]) 1975 M Date Time Provider Department 05/16/24 RANDALL HUGGINS During your visit today, we recorded the following information about you: Liliana José 05/16/2024 4:46 PM Signed patient calling on his lab results [phone] Parul lAexandre RN 05/17/2024 6:24 AM Signed Jnaeen- can you let him know his labs were normal and to start the prednisone that was called in. We are in surgery all day today. Janeen Larkin 05/17/2024 9:02 AM Signed Done. I emailed him the tapering instructions as well as his next appt date and asked him to call back if he had any questions. Allergies As of Date: 05/16/2024 Noted Allergy Reaction SEASONALE (LEVONORGESTREL-ETHIN YL*05/05/2024 14 - Other: See Comments Date Reviewed: 05/05/2024 Reviewed by: Gin Coronel, GLORIA - Fully Assessed Reason for Visit: lab results [Other] Prescriptions as of 05/17/2024 - predniSONE (DELTASONE) 20 mg tablet Take 4 tablets by mouth once daily for 7 days, THEN 3 tablets once daily for 7 days, THEN 2.5 tablets once daily for 7 days, THEN 2 tablets once daily for 7 days, THEN 1.5 tablets once daily for 7 days, THEN 1 tablet once daily for 7 days, THEN 0.5 tablets once daily for 7 days. - metFORMIN ER (GLUMETZA) 500 mg 24 hr tablet Take 500 mg by mouth daily with breakfast. - vitamin B complex (B COMPLEX ORAL) Take by mouth. - amLODIPine (NORVASC) 5 mg tablet Take by mouth once daily. Problem List As Of Date 05/16/2024 Noted Resolved Hypertension [I10] 05/13/2012 Palpitations [R00.2] 05/13/2012 Encounter Status:Closed by HELENE ALBERTS JANEEN on 05/17/24 Normal [facility] FLUORESCEIN ANGIOGRAPHY OU ( BOTH EYES), TRANSIT OD (RIGHT EYE)on 05-13-2024 [facility] FUNDUS AUTOFLUORESCENCE PHOT O (FAF) OU (BOTH EYES)on 05-13-2024 [facility] OCT MACULA CIRRUS OU (BOTH E YES)on 05-13-2024 [facility] HLA-A29 DNA TYPINGOrdered By : Claudia Sharma on 05-09-2024 HLA-A29 Ql (Bld/Tiss) Negative [facility] Comment on above: [place]shot retinochoro idopathy (BSCR) is a rare subtype of idiopathic posterior uveitis with distinct clinical characteristics that can lead to severe visual impairment. BSCR has the strongest documented HLA association for a human disease with > 95% of patients carrying HLA-A29. The frequency of HLA-A29 varies by ethnic group and could be up to 10% in some [place] populations. Determination of HLA-A29 is of diagnostic significance in BSCR. HLA typing performed by PCR-RSSOP and/or NGS. This test was developed and its performance characteristics determined by [employer]. The test has not been cleared or approved by the [place] FDA. However, FDA approval was not necessary since this lab is certified under CLIA for high complexity testing. Test performed by: [facility], [address], [place] [address] CLIA [id number] [facility] BLOOD TB SCREENon 05-06-2024 M. tuberculosis tuberculin stim IFN-g Ql (Bld) Negative [facility] Mitogen minus Nil - PINF [facility] TB Gamma Interpretation Infection with M . tuberculosis complex is unlikely. If latent tuberculosis infection is highly suspected, a negative result does not rule out the infection. Specimens from immunocompromised patients and those <5 years of age may show false negative results. In case of a contact investigation, please repeat 8-12 weeks after a known exposure. [facility] TB Nil 0.02 NINF [facility] TB1 Ag minus Nil 0.02 [facility] TB2 Ag minus Nil 0 [facility] ABUNDIO SerPl-cCncon 05-05-2024 Angiotensin converting enzyme [Catalytic activity/Vol] 27 U/L Normal <=52 [facility] Comment on above: Order Comment: Kourtney nash Type: BLOOD SPECIMEN Ordering Facility: [facility] Address: [address] [place] [address] Result Comment: Betsy ficially low ABUNDIO levels may be found for patients taking ABUNDIO inhibitors or after the administration of gadolinium. This test was developed, and its performance characteristics determined by the [facility] Department of Pathology and Laboratory Medicine. It has not been cleared or approved by the FDA. The [facility] Department of Pathology and Laboratory Medicine is regulated under CLIA as qualified to perform high-complexity testing. This test is used for clinical purposes. It should not be regarded as investigational or for research. Performed By: #### 2 742-5 #### [facility] CLIA [id number] [address] [place] [address] [place] ABUNDIO/ANGIOTENSIN BLDon 2024 Angiotensin converting enzyme [Catalytic activity/Vol] 27 U/L NINF - 52 U/L [facility] Comment on above: Artificially low ABUNDIO levels may be found for patients taking ABUNDIO inhibitors or after the administration of gadolinium. This test was developed, and its performance characteristics determined by the [facility] Department of Pathology and Laboratory Medicine. It has not been cleared or approved by the FDA. The [facility] Department of Pathology and Laboratory Medicine is regulated under CLIA as qualified to perform high-complexity testing. This test is used for clinical purposes. It should not be regarded as investigational or for research. Angiotensin converting enzym e [Catalytic activity/Vol]on 05-05-2024 Interpretation and review of laboratory results Normal [facility] BLOOD TB SCREENon 05-05-2024 M. tuberculosis tuberculin stim IFN-g Ql (Bld) Negative Normal [facility] Comment on above: Order Comment: Kourtney nash Type: BLOOD SPECIMEN Ordering Facility: [facility] Address: [address] [place] [address] Performed By: #### I NFTBP #### [facility] CLIA [id number] [address] [place] [address] [place] MITOGEN MINUS NIL >9.98 Normal >=0.50 [facility] Comment on above: Order Comment: Speci men Type: BLOOD SPECIMEN Ordering Facility: [facility] Address: [address] [place] [address] Performed By: #### I NFTBP #### [facility] CLIA [id number] [address] [place] [address] [place] TB GAMMA INTERPRETATION Infection with M . tuberculosis complex is unlikely. If latent tuberculosis infection is highly suspected, a negative result does not rule out the infection. Specimens from immunocompromised patients and those <5 years of age may show false negative results. In case of a contact investigation, please repeat 8-12 weeks after a known exposure. Normal [facility] Comment on above: Order Comment: Speci men Type: BLOOD SPECIMEN Ordering Facility: [facility] Address: [address] [place] [address] Performed By: #### I NFTBP #### [facility] CLIA [id number] [address] [place] [address] [place] TB NIL 0.02 IU/mL Normal <=8.00 [facility] Comment on above: Order Comment: Speci men Type: BLOOD SPECIMEN Ordering Facility: [facility] Address: [address] [place] [address] Performed By: #### I NFTBP #### [facility] CLIA [id number] [address] [place] [address] [place] TB1 AG MINUS NIL 0.02 IU/mL Normal <0.35 [facility] Comment on above: Order Comment: Speci men Type: BLOOD SPECIMEN Ordering Facility: [facility] Address: [address] [place] [address] Performed By: #### I NFTBP #### [facility] CLIA [id number] [address] [place] [address] [place] TB2 AG MINUS NIL 0.00 IU/mL Normal <0.35 [facility] Comment on above: Order Comment: Speci men Type: BLOOD SPECIMEN Ordering Facility: [facility] Address: [address] [place] [address] Performed By: #### I NFTBP #### [facility] CLIA [id number] [address] [place] [address] [place] CBC W Auto Differential pane l (Bld)on 05-05-2024 Basophils (Bld) [#/Vol] 0.05 10*3/uL [facility] Basophils/100 WBC (Bld) 0.4 % [facility] Differential cell count method Nom (Bld) Auto [facility] Eosinophils (Bld) [#/Vol] 0.13 10*3/uL [facility] Eosinophils/100 WBC (Bld) 1 % [facility] Erythrocyte distribution width (RBC) [Ratio] 13.3 % 11.5 - 15.0 % [facility] Hematocrit (Bld) [Volume fraction] 50 % 39.0 - 51.0 % [facility] Hemoglobin (Bld) [Mass/Vol] 16.4 g/dL 13.0 - 17.0 g/dL [facility] Immature granulocytes (Bld) [#/Vol] 0.05 10*3/uL [facility] Immature granulocytes/100 WBC (Bld) 0.4 % [facility] Interpretation and review of laboratory results Abnormal [facility] Lymphocytes (Bld) [#/Vol] 2.06 10*3/uL [facility] Lymphocytes/100 WBC (Bld) 16.2 % [facility] MCH (RBC) [Entitic mass] 29.8 pg 26. 0 - 34.0 pg [facility] MCHC (RBC) [Mass/Vol] 32.8 g/dL 30.5 - 36.0 g/dL [facility] MCV (RBC) [Entitic vol] 90.7 fL 80.0 - 100.0 fL [facility] Monocytes (Bld) [#/Vol] 0.7 10*3/uL [facility] Monocytes/100 WBC (Bld) 5.5 % [facility] Neutrophils (Bld) [#/Vol] 9.74 10*3/uL High [facility] Neutrophils/100 WBC (Bld) 76.5 % [facility] Nucleated RBC (Bld) [#/Vol] [facility] Nucleated RBC/100 WBC (Bld) [Ratio] 0 % /100 WBC [facility] Platelet mean volume (Bld) [Entitic vol] 9.3 fL 9.0 - 12.7 fL [facility] Platelets (Bld) [#/Vol] 291 10*3/uL [facility] RBC (Bld) [#/Vol] 5.51 10*6/uL 4.20 - 6.0 0 m/uL [facility] WBC (Bld) [#/Vol] 12.73 10*3/uL High [facility] Basophils (Bld) [#/Vol] 0.05 10*3/uL Normal <0.11 [facility] Comment on above: Order Comment: Speci men Type: BLOOD SPECIMEN Ordering Facility: [facility] Address: [address] [place] [address] Performed By: #### 5 7021-8 #### [facility] CLIA [id number] [address] [place] [address] [place] Basophils/100 WBC (Bld) 0.4 % Normal [facility] Comment on above: Order Comment: Speci men Type: BLOOD SPECIMEN Ordering Facility: [facility] Address: [address] [place] [address] Performed By: #### 5 7021-8 #### [facility] CLIA [id number] [address] [place] [address] [place] Differential cell count method Nom (Bld) Auto Normal [facility] Comment on above: Order Comment: Speci men Type: BLOOD SPECIMEN Ordering Facility[facility] Address: [address] [place] [address] Performed By: #### 5 7021-8 #### [facility] CLIA [id number] [address] [place] [address] [place] Eosinophils (Bld) [#/Vol] 0.13 10*3/uL Normal <0.46 [facility] Comment on above: Order Comment: Speci men Type: BLOOD SPECIMEN Ordering Facility: [facility] Address: [address] [place] [address] Performed By: #### 5 7021-8 #### [facility] CLIA [id number] [address] [place] [address] [place] Eosinophils/100 WBC (Bld) 1.0 % Normal [facility] Comment on above: Order Comment: Speci men Type: BLOOD SPECIMEN Ordering Facility: [facility] Address: [address] [place] [address] Performed By: #### 5 7021-8 #### [facility] CLIA [id number] [address] [place] [address] [place] Erythrocyte distribution width (RBC) [Ratio] 13.3 % Normal 11.5-15.0 [facility] Comment on above: Order Comment: Speci men Type: BLOOD SPECIMEN Ordering Facility: [facility] Address: [address] [place] [address] Performed By: #### 5 7021-8 #### [facility] CLIA [id number] [address] [place] [address] [place] Hematocrit (Bld) [Volume fraction] 50.0 % Normal 39.0-51.0 [facility] Comment on above: Order Comment: Speci men Type: BLOOD SPECIMEN Ordering Facility: [facility] Address: [address] [place] [address] Performed By: #### 5 7021-8 #### [facility] CLIA [id number] [address] [place] [address] [place] Hemoglobin (Bld) [Mass/Vol] 16.4 g/dL Normal 13.0-17.0 [facility] Comment on above: Order Comment: Speci men Type: BLOOD SPECIMEN Ordering Facility: [facility] Address: [address] [place] [address] Performed By: #### 5 7021-8 #### [facility] CLIA [id number] [address] [place] [address] [place] Immature granulocytes (Bld) [#/Vol] 0.05 10*3/uL Normal <0.10 [facility] Comment on above: Order Comment: Speci men Type: BLOOD SPECIMEN Ordering Facility: [facility] Address: [address] [place] [address] Performed By: #### 5 7021-8 #### [facility] CLIA [id number] [address] [place] [address] [place] Immature granulocytes/100 WBC (Bld) 0.4 % Normal [facility] Comment on above: Order Comment: Speci men Type: BLOOD SPECIMEN Ordering Facility: [facility] Address: [address] [place] [address] Performed By: #### 5 7021-8 #### [facility] CLIA [id number] [address] [place] [address] [place] Lymphocytes (Bld) [#/Vol] 2.06 10*3/uL Normal 1.00-4.0 0 [facility] Comment on above: Order Comment: Speci men Type: BLOOD SPECIMEN Ordering Facility: [facility] Address: [address] [place] [address] Performed By: #### 5 7021-8 #### [facility] CLIA [id number] [address] [place] [address] [place] Lymphocytes/100 WBC (Bld) 16.2 % Normal [facility] Comment on above: Order Comment: Speci men Type: BLOOD SPECIMEN Ordering Facility: [facility] Address: [address] [place] [address] Performed By: #### 5 7021-8 #### [facility] CLIA [id number] [address] [place] [address] [place] MCH (RBC) [Entitic mass] 29.8 pg Normal 26.0-34.0 [facility] Comment on above: Order Comment: Speci men Type: BLOOD SPECIMEN [facility] Facility[facility] Address: [address] [place] [address] Performed By: #### 5 7021-8 #### [facility] CLIA [id number] [address] [place] [address] [place] MCHC (RBC) [Mass/Vol] 32.8 g/dL Normal 30.5-36.0 [facility] Comment on above: Order Comment: Speci men Type: BLOOD SPECIMEN [facility] Address: [address] [place] [address] Performed By: #### 5 7021-8 #### [facility] CLIA [id number] [address] [place] [address] [place] MCV (RBC) [Entitic vol] 90.7 fL Normal 80.0-100.0 [facility] Comment on above: Order Comment: Speci men Type: BLOOD SPECIMEN [facility] Address: [address] [place] [address] Performed By: #### 5 7021-8 #### [facility] CLIA [id number] [address] [place] [address] [place] Monocytes (Bld) [#/Vol] 0.70 10*3/uL Normal <0.87 [facility] Comment on above: Order Comment: Speci men Type: BLOOD SPECIMEN [facility] Address: [address] [place] [address] Performed By: #### 5 7021-8 #### [facility] CLIA [id number] [address] [place] [address] [place] Monocytes/100 WBC (Bld) 5.5 % Normal [facility] Comment on above: Order Comment: Speci men Type: BLOOD SPECIMEN [facility] Address: [address] [place] [address] Performed By: #### 5 7021-8 #### [facility] CLIA [id number] [address] [place] [address] [place] Neutrophils (Bld) [#/Vol] 9.74 10*3/uL High 1.45-7.5 0 [facility] Comment on above: Order Comment: Speci men Type: BLOOD SPECIMEN [facility] Address: [address] [place] [address] Performed By: #### 5 7021-8 #### [facility] CLIA [id number] [address] [place] [address] [place] Neutrophils/100 WBC (Bld) 76.5 % Normal [facility] Comment on above: Order Comment: Speci men Type: BLOOD SPECIMEN [facility] Address: [address] [place] [address] Performed By: #### 5 7021-8 #### [facility] CLIA [id number] [address] [place] [address] [place] Nucleated RBC (Bld) [#/Vol] 10*3/uL Normal <0.01 [facility] Comment on above: Order Comment: Speci men Type: BLOOD SPECIMEN [facility] Address: [address] [place] [address] Performed By: #### 5 7021-8 #### [facility] CLIA [id number] [address] [place] [address] [place] Nucleated RBC/100 WBC (Bld) [Ratio] 0.0 /100 WBC Normal [facility] Comment on above: Order Comment: Speci men Type: BLOOD SPECIMEN [facility] Address: [address] [place] [address] Performed By: #### 5 7021-8 #### [facility] CLIA [id number] [address] [place] [address] [place] Platelet mean volume (Bld) [Entitic vol] 9.3 fL Normal 9.0-12.7 [facility] Comment on above: Order Comment: Speci men Type: BLOOD SPECIMEN [facility] Address: [address] [place] [address] Performed By: #### 5 7021-8 #### [facility] CLIA [id number] [address] [place] [address] [place] Platelets (Bld) [#/Vol] 291 10*3/uL Normal 150-400 [facility] Comment on above: Order Comment: Speci men Type: BLOOD SPECIMEN [facility] Address: [address] [place] [address] Performed By: #### 5 7021-8 #### [facility] CLIA [id number] [address] [place] [address] [place] RBC (Bld) [#/Vol] 5.51 10*6/uL Normal 4.20-6.00 [facility] Comment on above: Order Comment: Speci men Type: BLOOD SPECIMEN [facility] Address: [address] [place] [address] Performed By: #### 5 7021-8 #### [facility] CLIA [id number] [address] [place] [address] [place] WBC (Bld) [#/Vol] 12.73 10*3/uL High 3.70-11.00 [facility] Comment on above: Order Comment: Speci men Type: BLOOD SPECIMEN [facility] Address: [address] [place] [address] Performed By: #### 5 7021-8 #### [facility] CLIA [id number] [address] [place] [address] [place] Comprehensive metabolic 2000 panelon 05-05-2024 Albumin [Mass/Vol] 4.4 g/dL 3.9 - 4.9 g/dL [facility] ALP [Catalytic activity/Vol] 44 U/L 38 - 113 U/L [facility] ALT [Catalytic activity/Vol] 24 U/L 10 - 54 U/L [facility] Anion gap [Moles/Vol] 12 mmol/L 8 - 15 mmol/L [facility] AST [Catalytic activity/Vol] 21 U/L 14 - 40 U/L [facility] Bilirubin [Mass/Vol] 0.3 mg/dL 0.2 - 1 .3 mg/dL [facility] Calcium [Mass/Vol] 10.1 mg/dL 8.5 - 10. 2 mg/dL [facility] Chloride [Moles/Vol] 104 mmol/L 98 - 10 7 mmol/L [facility] CO2 [Moles/Vol] 25 mmol/L 22 - 30 mmol/L [facility] Creatinine [Mass/Vol] 0.83 mg/dL 0.73 - 1.22 mg/dL [facility] GFR/1.73 sq M.predicted among non-blacks MDRD (S/P/Bld) [Vol rate/Area] 109 mL/min/{1.73_m2} - PINF [facility] Comment on above: Estimated Glomerular Filtration Rate (eGFR) is calculated using the 2020 CKD-EPI creatinine equation. This equation utilizes serum creatinine, sex, and age as parameters. The creatinine assay has traceable calibration to isotope dilution-mass spectrometry. Refer to KDIGO guidelines for clinical interpretation. In patients with unstable renal function, e.g. those with acute kidney injury, the eGFR may not accurately reflect actual GFR. Glucose [Mass/Vol] 114 mg/dL High 74 - 99 mg/dL [facility] Comment on above: The [place] Diabete s Association (ADA) provides guidance for cutoff values for fasting glucose and random glucose. The ADA defines fasting as no caloric intake for at least 8 hours. Fasting plasma glucose results between 100 to 125 mg/dL indicate increased risk for diabetes (prediabetes). Fasting plasma glucose results greater than or equal to 126 mg/dL meet the criteria for diagnosis of diabetes. In the absence of unequivocal hyperglycemia, results should be confirmed by repeat testing. In a patient with classic symptoms of hyperglycemia or hyperglycemic crisis, random plasma glucose results greater than or equal to 200 mg/dL meet the criteria for diagnosis of diabetes. Reference: Standards of Medical Care in Diabetes 2016, [place] Diabetes Association. Diabetes Care. 2016.39(Suppl 1). Interpretation and review of laboratory results Abnormal [facility] Potassium [Moles/Vol] 4.6 mmol/L 3.7 - 5.1 mmol/L [facility] Protein [Mass/Vol] 7.8 g/dL 6.3 - 8.0 g/dL [facility] Sodium [Moles/Vol] 141 mmol/L 136 - 144 mmol/L [facility] Urea nitrogen [Mass/Vol] 13 mg/dL 9 - 24 mg/d L [facility] Albumin [Mass/Vol] 4.4 g/dL Normal 3.9-4.9 [facility] Comment on above: Order Comment: Speci men Type: BLOOD SPECIMEN [facility] Address: [address] [place] [address] Performed By: #### 2 4323-8 #### [facility] CLIA [id number] [address] [place] [address] [place] ALP [Catalytic activity/Vol] 44 U/L Normal 38-113 [facility] Comment on above: Order Comment: Speci men Type: BLOOD SPECIMEN [facility] Address: [address] [place] [address] Performed By: #### 2 4323-8 #### [facility] CLIA [id number] [address] [place] [address] [place] ALT [Catalytic activity/Vol] 24 U/L Normal 10-54 [facility] Comment on above: Order Comment: Speci men Type: BLOOD SPECIMEN [facility] Address: [address] [place] [address] Performed By: #### 2 4323-8 #### [facility] CLIA [id number] [address] [place] [address] [place] Anion gap [Moles/Vol] 12 mmol/L Normal 8-15 [facility] Comment on above: Order Comment: Speci men Type: BLOOD SPECIMEN [facility] Address: [address] [place] [address] Performed By: #### 2 4323-8 #### [facility] CLIA [id number] [address] [place] [address] [place] AST [Catalytic activity/Vol] 21 U/L Normal 14-40 [facility] Comment on above: Order Comment: Speci men Type: BLOOD SPECIMEN [facility] Address: [address] [place] [address] Performed By: #### 2 4323-8 #### [facility] CLIA [id number] [address] [place] [address] [place] Bilirubin [Mass/Vol] 0.3 mg/dL Normal 0.2-1.3 [facility] Comment on above: Order Comment: Speci men Type: BLOOD SPECIMEN [facility] Address: [address] [place] [address] Performed By: #### 2 4323-8 #### [facility] CLIA [id number] [address] [place] [address] [place] Calcium [Mass/Vol] 10.1 mg/dL Normal 8.5-10.2 [facility] Comment on above: Order Comment: Speci men Type: BLOOD SPECIMEN [facility] Address: [address] [place] [address] Performed By: #### 2 4323-8 #### [facility] CLIA [id number] [address] [place] [address] [place] Chloride [Moles/Vol] 104 mmol/L Normal 98-107 [facility] Comment on above: Order Comment: Speci men Type: BLOOD SPECIMEN [facility]ing [facility] Address: [address] [place] [address] Performed By: #### 2 4323-8 #### [facility] CLIA [id number] [address] [place] [address] [place] CO2 [Moles/Vol] 25 mmol/L Normal 22-30 [facility] Comment on above: Order Comment: Speci men Type: BLOOD SPECIMEN [facility] Address: [address] [place] [address] Performed By: #### 2 4323-8 #### [facility] CLIA [id number] [address] [place] [address] [place] Creatinine [Mass/Vol] 0.83 mg/dL Normal 0.73-1.22 [facility] Comment on above: Order Comment: Kourtney nash Type: BLOOD SPECIMEN [facility] Address: [address] [place] [address] Performed By: #### 2 4323-8 #### [facility] CLIA [id number] [address] [place] [address] [place] Creatinine and Glomerular filtration rate.predicted panel (S/P/Bld) 109 mL/min/1.73m??? Normal >=60 [facility] Comment on above: Order Comment: Kourtney nash Type: BLOOD SPECIMEN [facility] Address: [address] [place] [address] Result Comment: Yamilka mated Glomerular Filtration Rate (eGFR) is calculated using the 2020 CKD-EPI creatinine equation. This equation utilizes serum creatinine, sex, and age as parameters. The creatinine assay has traceable calibration to isotope dilution-mass spectrometry. Refer to KDIGO guidelines for clinical interpretation. In patients with unstable renal function, e.g. those with acute kidney injury, the eGFR may not accurately reflect actual GFR. Performed By: #### 2 4323-8 #### [facility] CLIA [id number] [address] [place] [address] [place] Glucose [Mass/Vol] 114 mg/dL High 74-99 [facility] Comment on above: Order Comment: Kourtney nash Type: BLOOD SPECIMEN [facility] Address: [address] [place] [address] Result Comment: The [place] Diabetes Association (ADA) provides guidance for cutoff values for fasting glucose and random glucose. The ADA defines fasting as no caloric intake for at least 8 hours. Fasting plasma glucose results between 100 to 125 mg/dL indicate increased risk for diabetes (prediabetes). Fasting plasma glucose results greater than or equal to 126 mg/dL meet the criteria for diagnosis of diabetes. In the absence of unequivocal hyperglycemia, results should be confirmed by repeat testing. In a patient with classic symptoms of hyperglycemia or hyperglycemic crisis, random plasma glucose results greater than or equal to 200 mg/dL meet the criteria for diagnosis of diabetes. Reference: Standards of Medical Care in Diabetes 2016, [place] Diabetes Association. Diabetes Care. 2016.39(Suppl 1). Performed By: #### 2 4323-8 #### [facility] CLIA [id number] [address] [place] [address] [place] Potassium [Moles/Vol] 4.6 mmol/L Normal 3.7-5.1 [facility] Comment on above: Order Comment: Speci men Type: BLOOD SPECIMEN [facility] Address: [address] [place] [address] Performed By: #### 2 4323-8 #### [facility] CLIA [id number] [address] [place] [address] [place] Protein [Mass/Vol] 7.8 g/dL Normal 6.3-8.0 [facility] Comment on above: Order Comment: Speci men Type: BLOOD SPECIMEN [facility] Address: [address] [place] [address] Performed By: #### 2 4323-8 #### [facility] CLIA [id number] [address] [place] [address] [place] Sodium [Moles/Vol] 141 mmol/L Normal 136-144 [facility] Comment on above: Order Comment: Speci men Type: BLOOD SPECIMEN [facility] Address: [address] [place] [address] Performed By: #### 2 4323-8 #### [facility] CLIA [id number] [address] [place] [address] [place] Urea nitrogen [Mass/Vol] 13 mg/dL Normal 9-24 [facility] Comment on above: Order Comment: Specmatt nash Type: BLOOD SPECIMEN [facility] Address: [address] [place] [address] Performed By: #### 2 4323-8 #### [facility] CLIA [id number] [address] [place] [address] [place] FLUORESCEIN ANGIOGRAPHY OU ( BOTH EYES), TRANSIT OD (RIGHT EYE)on 05-05-2024 Radiology Study observation (narrative) [facility] FUNDUS AUTOFLUORESCENCE PHOT O (FAF) OU (BOTH EYES)on 05-05-2024 Radiology Study observation (narrative) [facility] HLA-A29 DNA TYPINGon 025 HLA-A29 Ql (Bld/Tiss) Negative Normal [facility] Comment on above: Order Comment: Kourtney nash Type: BLOOD SPECIMEN [facility] Address: [address] [place] [address] Result Comment: Bird shot retinochoroidopathy (BSCR) is a rare subtype of idiopathic posterior uveitis with distinct clinical characteristics that can lead to severe visual impairment. BSCR has the strongest documented HLA association for a human disease with > 95% of patients carrying HLA-A29. The frequency of HLA-A29 varies by ethnic group and could be up to 10% in some [place] populations. Determination of HLA-A29 is of diagnostic significance in BSCR. HLA typing performed by PCR-RSSOP and/or NGS. This test was developed and its performance characteristics determined by [employer]. The test has not been cleared or approved by the [place] FDA. However, FDA approval was not necessary since this lab is certified under CLIA for high complexity testing. Test performed by: [facility], [address] [place], [place] [address]d [facility] [place] [address] CLIA [id number] Performed By: #### H [id number] #### [facility] CLIA [id number] [address] [place] [id number] [place] OCT MACULA CIRRUS OU (BOTH E YES)on 05-05-2024 Radiology Study observation (narrative) [facility] Reagin and Treponema pallidu m IgG and IgM [Interp]on 05-05-2024 T. pallidum IgG+IgM IA Ql (S) Non-Reactive Nonreactive [facility] T. pallidum IgG+IgM IA Ql (S) Non-Reactive Normal Nonreactive [facility] Comment on above: Order Comment: Speci men Type: BLOOD SPECIMEN [facility] Address: [address] [place] [address] Performed By: #### 7 3752-8 #### [facility] CLIA [id number] [address] [place] [address] [place] Reagin+T pallidum IgG+IgM Se rPl-Impon 05-05-2024 Reagin and Treponema pallidum IgG and IgM [Interp] Cannot exclude recent Treponemal infection if specimen collected within 7-10 days after appearance of suspect lesions or 2-3 weeks after an exposure. Clinical correlation is required. Normal [facility] Comment on above: Order Comment: Speci men Type: BLOOD SPECIMEN [facility] Address: [address] [place] [address] Performed By: #### 7 3752-8 #### [facility] CLIA [id number] [address] [place] [address] [place] SYPHILIS TREPONEMAL W/REFLEX on 05-05-2024 Reagin and Treponema pallidum IgG and IgM [Interp] Cannot exclude recent Treponemal infection if specimen collected within 7-10 days after appearance of suspect lesions or 2-3 weeks after an exposure. Clinical correlation is required. [facility] Absolute neutrophil countOrd ered By: Ernesto Hull on 03-24-2024 Neutrophils (Bld) [#/Vol] 7.8 10*3/uL High 2.0-7.7 [facility] Albumin to globulin ratioOrd ered By: Ernesto Hull on 03-24-2024 Albumin/Globulin [Mass ratio] 1.0 {ratio} 0.9-2.4 [facility] Basophil percentageOrdered B y: Ernesto Hull on 03-24-2024 Basophils/100 WBC (Bld) 0.5 % 0-1 [facility] Bilirubin, totalOrdered By: Ernesto Hull on 03-24-2024 Bilirubin [Mass/Vol] 0.70 mg/dL 0.20-1.00 [facility] Comment on above: For patients on eltr ombopag therapy, use of Dimension [place] TBIL is not recommended. Blood urea nitrogen (BUN)/cr eatinine ratioOrdered By: Ernesto Hull on 03-24-2024 Urea nitrogen/Creatinine [Mass ratio] 19.1 mg/mg 10-20 [facility] C-reactive protein measureme nt by high sensitivity methodOrdered By: Ernesto Hull on 03-24-2024 C-Reactive Protein Extended Range 11.60 mg/L High 0.0-3.0 [facility] Comment on above: C-Reactive Protein ( CRP) provides useful information for thediagnosis, therapy and monitoring of inflammatory processesand associated diseases. For the evaluation of Relative Riskfor Cardiovascular Disease, a High Sensitivity CRP (HSCRP)should be ordered. CBC W/Diff, Automatedon Absolute Lymph 2.34 X10 3/uL Normal 0.83-4.51 [facility] Comment on above: Order Comment: Order Date: 03/24/24 Order Info: 0184-1 - CBCD Performed By: #### L 500.4050, L501.6710, L100.0100 #### [facility] [address] [place], [address] Absolute Neut 7.8 X10 3/uL High 2.0-7.7 [facility] Comment on above: Order Comment: Order Date: 03/24/24 Order Info: 0184-1 - CBCD Performed By: #### L 500.4050, L501.6710, L100.0100 #### [facility] [address] [place], [address] Basophils/100 WBC (Bld) 0.5 % Normal 0-1 [facility] Comment on above: Order Comment: Order Date: 03/24/24 Order Info: 0184-1 - CBCD Performed By: #### L 500.4050, L501.6710, L100.0100 #### [facility] [address] [place], [address] Eosinophils/100 WBC (Bld) 2.0 % Normal 0-5 [facility] Comment on above: Order Comment: Order Date: 03/24/24 Order Info: 0184-1 - CBCD Performed By: #### L 500.4050, L501.6710, L100.0100 #### [facility] [address] [place], [address] Erythrocyte distribution width (RBC) [Ratio] 13.0 % Normal 11.6-14.6 [facility] Comment on above: Order Comment: Order Date: 03/24/24 Order Info: 0184-1 - CBCD Performed By: #### L 500.4050, L501.6710, L100.0100 #### [facility] [address] [place], [address] Hematocrit (Bld) [Volume fraction] 52.6 % Normal 40-54 [facility] Comment on above: Order Comment: Order Date: 03/24/24 Order Info: 0184-1 - CBCD Performed By: #### L 500.4050, L501.6710, L100.0100 #### [facility] [address] [place], [address] Hemoglobin (Bld) [Mass/Vol] 17.3 g/dL High 13.0-16.5 [facility] Comment on above: Order Comment: Order Date: 03/24/24 Order Info: 0184-1 - CBCD Performed By: #### L 500.4050, L501.6710, L100.0100 #### [facility] [address] [place], [address] IG% 0.300 Normal 0.0-0.9 [facility] Comment on above: Order Comment: Order Date: 03/24/24 Order Info: 0184-1 - CBCD Result Comment: IG% - Immature Granulocytes (promyelocytes, myelocytes and metamyelocytes) > 1% indicates that a LEFT SHIFT is Present. Performed By: #### L 500.4050, L501.6710, L100.0100 #### [facility] [address] [place], [address] Lymphocytes/100 WBC (Bld) 20.8 % Normal 19-41 [facility] Comment on above: Order Comment: Order Date: 03/24/24 Order Info: 0184-1 - CBCD Performed By: #### L 500.4050, L501.6710, L100.0100 #### [facility] [address] [place], [address] MCH (RBC) [Entitic mass] 29.9 pg Normal 27.0-32.0 [facility] Comment on above: Order Comment: Order Date: 03/24/24 Order Info: 0184-1 - CBCD Performed By: #### L 500.4050, L501.6710, L100.0100 #### [facility] [address] [place], [address] MCHC (RBC) [Mass/Vol] 32.9 g/dL Normal 32-36 [facility] Comment on above: Order Comment: Order Date: 03/24/24 Order Info: 0184-1 - CBCD Performed By: #### L 500.4050, L501.6710, L100.0100 #### [facility] [address] [place], [address] MCV (RBC) [Entitic vol] 90.8 fL Normal 80-94 [facility] Comment on above: Order Comment: Order Date: 03/24/24 Order Info: 0184-1 - CBCD Performed By: #### L 500.4050, L501.6710, L100.0100 #### [facility] [address] [place], [address] Monocytes/100 WBC (Bld) 7.1 % Normal 0-10 [facility] Comment on above: Order Comment: Order Date: 03/24/24 Order Info: 0184-1 - CBCD Performed By: #### L 500.4050, L501.6710, L100.0100 #### [facility] [address] [place], [address] Neutrophils/100 WBC (Bld) 69.3 % Normal 47-70 [facility] Comment on above: Order Comment: Order Date: 03/24/24 Order Info: 0184-1 - CBCD Performed By: #### L 500.4050, L501.6710, L100.0100 #### [facility] [address] [place], [address] Nucleated RBC (Bld) [#/Vol] 0 10*3/uL Normal 0-5 [facility] Comment on above: Order Comment: Order Date: 03/24/24 Order Info: [id number] - CBCD Performed By: #### L 500.4050, L501.6710, L100.0100 #### [facility] [address] [place], [address] Platelet mean volume (Bld) [Entitic vol] 9.7 fL Normal 6.2-12.0 [facility] Comment on above: Order Comment: Order Date: 03/24/24 Order Info: [id number] - CBCD Performed By: #### L 500.4050, L501.6710, L100.0100 #### [facility] [address] [place], [address] Platelets (Bld) [#/Vol] 228 10*3/uL Normal 150-450 [facility] Comment on above: Order Comment: Order Date: 03/24/24 Order Info: [id number] - CBCD Performed By: #### L 500.4050, L501.6710, L100.0100 #### [facility] [address] [place], [address] RBC (Bld) [#/Vol] 5.79 10*6/uL Normal 4.6-6.2 [facility] Comment on above: Order Comment: Order Date: 03/24/24 Order Info: [id number] - CBCD Performed By: #### L 500.4050, L501.6710, L100.0100 #### [facility] [address] [place], [address] RDW SD 43.3 fl Normal 35.1-43.9 [facility] Comment on above: Order Comment: Order Date: 03/24/24 Order Info: [id number] - CBCD Performed By: #### L 500.4050, L501.6710, L100.0100 #### [facility] [address] [place], [address] WBC (Bld) [#/Vol] 11.2 10*3/uL High 4.4-11.0 [facility] Comment on above: Order Comment: Order Date: 03/24/24 Order Info: [id number] - CBCD Performed By: #### L 500.4050, L501.6710, L100.0100 #### [facility] [address] [place], [address] CRPon 03-24-2024 C-REACTIVE PROT 11.60 mg/L High 0.0-3.0 [facility] Comment on above: Order Comment: Order Date: 03/24/24 Order Info: [id number] - CMP Order Info: [id number] - CRP Result Comment: C-Re active Protein (CRP) provides useful information for the diagnosis, therapy and monitoring of inflammatory processes and associated diseases. For the evaluation of Relative Risk for Cardiovascular Disease, a High Sensitivity CRP (HSCRP) should be ordered. Performed By: #### L 500.4050, L501.6710, L100.0100 #### [facility] [address] [place], [address] Carbon dioxide measurementOr dered By: Ernesto Hull on 03-24-2024 CO2 [Moles/Vol] 28.0 mmol/L 21.0-32.0 [facility] Chest PA and Lateralon 03-24 Chest PA and Lateral [facility] [address] [place] [address] Chest PA and Lateral MR#: [id number] Acct: [id number] Name: MICHELLE SUTTON Rep #: [id number] : 1975 M 48 From: Judith jacome MD PCP: Dr. Ernesto Hull MD Status: REG CLI Study: Chest PA and Lateral Date of Exam: 03/24/24 Exam# [id number] Ordering Dr: Ernesto Hull MD [id number] HISTORY: shortness of breath and tachycardia. TECHNIQUE: XR Chest 2 Views. COMPARISON: None. FINDINGS: CARDIOMEDIASTINAL BORDERS: Cardiac silhouette within normal limits in size. Mediastinal contour unremarkable. LUNGS: Radiographically clear. PLEURA: No pleural effusion or pneumothorax seen. OSSEOUS STRUCTURES: Spinal osteophytes present. RAD/Chest PA and Lateral IMPRESSION: No acute cardiopulmonary process identified. Electronically Signed: Judith Mckenna MD at 10:10 EST Reading Location ID and State: [facility] / [place] Tel , Service support , CC: Dr. Ernesto Hull MD Ibm Mainframe Developer: Signed Normal [facility] Chloride measurementOrdered By: Ernesto Hull on 03-24-2024 Chloride [Moles/Vol] 102 mmol/L 98-107 [facility] Comprehensive Metabolic Prof ilon 03-24-2024 Albumin [Mass/Vol] 4.2 g/dL Normal 3.2-5.0 [facility] Comment on above: Order Comment: Order Date: 03/24/24 Order Info: [id number] - CMP Order Info: [id number] - CRP Performed By: #### L 500.4050, L501.6710, L100.0100 #### [facility] [address] [place], [address] Albumin/Globulin [Mass ratio] 1.0 {ratio} Normal 0.9-2.4 [facility] Comment on above: Order Comment: Order Date: 03/24/24 Order Info: [id number] - CMP Order Info: [id number] - CRP Performed By: #### L 500.4050, L501.6710, L100.0100 #### [facility] [address] [place], [address] ALK P 49 U/L Normal 45-117 [facility] Comment on above: Order Comment: Order Date: 03/24/24 Order Info: [id number] - CMP Order Info: [id number] - CRP Performed By: #### L 500.4050, L501.6710, L100.0100 #### [facility] [address] [place], [address] ALT [Catalytic activity/Vol] 58 U/L Normal 16-61 [facility] Comment on above: Order Comment: Order Date: 03/24/24 Order Info: [id number] - CMP Order Info: [id number] - CRP Performed By: #### L 500.4050, L501.6710, L100.0100 #### [facility] [address] [place], [address] AST [Catalytic activity/Vol] 31 U/L Normal 15-37 [facility] Comment on above: Order Comment: Order Date: 03/24/24 Order Info: 0786-1 - CMP Order Info: [id number] - CRP Performed By: #### L 500.4050, L501.6710, L100.0100 #### [facility] [address] [place], [address] Bilirubin [Mass/Vol] 0.70 mg/dL Normal 0.20-1.00 [facility] Comment on above: Order Comment: Order Date: 03/24/24 Order Info: [id number] - CMP Order Info: [id number] - CRP Result Comment: For patients on eltrombopag therapy, use of Dimension [place] TBIL is not recommended. Performed By: #### L 500.4050, L501.6710, L100.0100 #### [facility] [address] [place], [address] BUN/CRE 19.1 RATIO Normal 10-20 [facility] Comment on above: Order Comment: Order Date: 03/24/24 Order Info: 0786-1 - CMP Order Info: [id number] - CRP Performed By: #### L 500.4050, L501.6710, L100.0100 #### [facility] [address] [place], [address] CA,Total 9.9 mg/dL Normal 8.5-10.1 [facility] Comment on above: Order Comment: Order Date: 03/24/24 Order Info: [id number] - CMP Order Info: [id number] - CRP Performed By: #### L 500.4050, L501.6710, L100.0100 #### [facility] [address] [place], [address] Chloride [Moles/Vol] 102 mmol/L Normal 98-107 [facility] Comment on above: Order Comment: Order Date: 03/24/24 Order Info: 0786-1 - CMP Order Info: [id number] - CRP Performed By: #### L 500.4050, L501.6710, L100.0100 #### [facility] [address] [place], [address] CO2 [Moles/Vol] 28.0 mmol/L Normal 21.0-32.0 [facility] Comment on above: Order Comment: Order Date: 03/24/24 Order Info: 0786-1 - CMP Order Info: [id number] - CRP Performed By: #### L 500.4050, L501.6710, L100.0100 #### [facility] [address] [place], [address] Creatinine [Mass/Vol] 0.89 mg/dL Normal 0.70-1.30 [facility] Comment on above: Order Comment: Order Date: 03/24/24 Order Info: [id number] - CMP Order Info: [id number] - CRP Result Comment: The validity of the calculated GFR GFRAA in patients over 70 years has not been determined. Clinical correlation is essential. Performed By: #### L 500.4050, L501.6710, L100.0100 #### [facility] [address] [place], [address] EST GFR - AA 117 mL/min Normal >60 [facility] Comment on above: Order Comment: Order Date: 03/24/24 Order Info: [id number] - CMP Order Info: [id number] - CRP Result Comment: Afri can Finnish GFR Calc Performed By: #### L 500.4050, L501.6710, L100.0100 #### [facility] [address] [place], [address] GAP 5 Normal 5-15 [facility] Comment on above: Order Comment: Order Date: 03/24/24 Order Info: 0786-1 - CMP Order Info: [id number] - CRP Performed By: #### L 500.4050, L501.6710, L100.0100 #### [facility] [address] [place], [address] GFR/1.73 sq M.predicted among non-blacks MDRD (S/P/Bld) [Vol rate/Area] 97 mL/min/{1.73_m2} Normal >60 [facility] Comment on above: Order Comment: Order Date: 03/24/24 Order Info: [id number] - CMP Order Info: [id number] - CRP Result Comment: Non- GFR Calc Performed By: #### L 500.4050, L501.6710, L100.0100 #### [facility] [address] [place], [address] Globulin (S) [Mass/Vol] 4.2 g/dL Normal 2.2-4.2 [facility] Comment on above: Order Comment: Order Date: 03/24/24 Order Info: [id number] - CMP Order Info: [id number] - CRP Performed By: #### L 500.4050, L501.6710, L100.0100 #### [facility] [address] [place], [address] Glucose [Mass/Vol] 120 mg/dL High 74-106 [facility] Comment on above: Order Comment: Order Date: 03/24/24 Order Info: 0786-1 - CMP Order Info: [id number] - CRP Result Comment: Fast ing Glucose result from 100 to 125 mg/dL suggests IMPAIRED HOMEOSTASIS per A.D.A. criteria. Performed By: #### L 500.4050, L501.6710, L100.0100 #### [facility] [address] [place], [address] Potassium [Moles/Vol] 3.8 mmol/L Normal 3.5-5.1 [facility] Comment on above: Order Comment: Order Date: 03/24/24 Order Info: 0786-1 - CMP Order Info: [id number] - CRP Performed By: #### L 500.4050, L501.6710, L100.0100 #### [facility] [address] [place], [address] Sodium [Moles/Vol] 135 mmol/L Low 136-145 [facility] Comment on above: Order Comment: Order Date: 03/24/24 Order Info: 0786-1 - CMP Order Info: [id number] - CRP Performed By: #### L 500.4050, L501.6710, L100.0100 #### [facility] [address] [place], [address] T PROT 8.4 g/dL High 6.4-8.2 [facility] Comment on above: Order Comment: Order Date: 03/24/24 Order Info: 0786-1 - CMP Order Info: [id number] - CRP Performed By: #### L 500.4050, L501.6710, L100.0100 #### [facility] [address] [place], [place], [address] Urea nitrogen [Mass/Vol] 17 mg/dL Normal 7-18 [facility] Comment on above: Order Comment: Order Date: 03/24/24 Order Info: [id number] - CMP Order Info: [id number] - CRP Performed By: #### L 500.4050, L501.6710, L100.0100 #### [facility] [address] [place], [place], [address] D-Dimer Quantitative (DVT/PE )on 03-24-2024 D-DIMER QUANT 0.27 FEU/ug/m Normal 0.27-0.49 [facility] Comment on above: Result Comment: NORM AL D-Dimer level (<0.50) indicates no DVT or PE. Performed By: #### L 300.8000, L300.4700 #### [facility] [address] [place], [place], [address] D-dimer measurement for deep venous thrombosisOrdered By: Ernesto Hull on 03-24-2024 D-Dimer Quantitative (PE/DVT) 0.27 FEU/ug/m 0.27-0.49 [facility] Comment on above: NORMAL D-Dimer level (<0.50) indicates no DVT or PE. Eosinophil percentageOrdered By: Ernesto Hull on 03-24-2024 Eosinophils/100 WBC (Bld) 2.0 % 0-5 [facility] Erythrocyte distribution wid th (RBC) [Ratio]Ordered By: Ernesto Hull on 03-24-2024 Erythrocyte distribution width (RBC) [Entitic vol] 43.3 fL 35.1-43.9 [facility] Erythrocyte distribution wid th ratioOrdered By: Ernesto Hull on 03-24-2024 Erythrocyte distribution width (RBC) [Ratio] 13.0 % 11.6-14.6 [facility] Estimated glomerular filtrat ion rate (GFR) AmericanOrdered By: Ernesto Hull on 03-24-2024 Estimated GFR (MDRD) Amer 117 mL/min >60 [facility] Comment on above: GFR Calc Fibrinogenon 03-24-2024 FIBRINOGEN 358 mg/dl Normal -44 [facility] Comment on above: Performed By: #### L 300.8000, L300.4700 #### [facility] [address] [place], [place], [id number] Fibrinogen measurementOrdere d By: Ernesto Hull on 03-24-2024 Fibrinogen 358 mg/dl - [facility] Glomerular filtration rate ( GFR) estimationOrdered By: Ernesto Hull on 03-24-2024 Estimated GFR (MDRD) Non-Af Amer 97 mL/min >60 [facility] Comment on above: Non- GFR Calc Glucose measurementOrdered B y: Ernesto Hull on 03-24-2024 Glucose [Mass/Vol] 120 mg/dL High 74-106 [facility] Comment on above: Fasting Glucose resu lt from 100 to 125 mg/dL suggests IMPAIRED HOMEOSTASIS per A.D.A. criteria. Hematocrit Auto (Bld) [Volum e fraction]Ordered By: Ernesto Hull on 03-24-2024 Hematocrit (Bld) [Volume fraction] 52.6 % 40-54 [facility] Hemoglobin measurementOrdere d By: Ernesto Hull on 03-24-2024 Hemoglobin (Bld) [Mass/Vol] 17.3 g/dL High 13.0-16.5 [facility] Immature granulocytes/100 WB C Auto (Bld)Ordered By: Ernesto Hull on 03-24-2024 Immature granulocytes/100 WBC (Bld) 0.300 % 0.0-0.9 [facility] Comment on above: IG% - Immature Granu locytes (promyelocytes, myelocytes and metamyelocytes) > 1% indicates that a LEFT SHIFT is Present. Laboratory - Chemistry and C hemistry - challengeOrdered By: Ernesto Hull on 03-24-2024 AST [Catalytic activity/Vol] 31 U/L 15-37 [facility] Lymphocytes Auto (Unsp spec) [#/Vol]Ordered By: Ernesto Hull on 03-24-2024 Lymphocytes (Bld) [#/Vol] 2.34 10*3/uL 0.83-4.5 1 [facility] Lymphocytes/100 WBC Auto (Un sp spec)Ordered By: Ernesto Hull on 03-24-2024 Lymphocytes/100 WBC (Bld) 20.8 % 19-41 [facility] MCV (mean corpuscular volume ) determinationOrdered By: Ernesto Hull on 03-24-2024 MCV (RBC) [Entitic vol] 90.8 fL 80-94 [facility] Mean corpuscular hemoglobin (MCH) determinationOrdered By: Ernesto Hull on 03-24-2024 MCH (RBC) [Entitic mass] 29.9 pg 27.0-32.0 [facility] Mean corpuscular hemoglobin concentration (MCHC) determinationOrdered By: Ernesto Hull on 03-24-2024 MCHC (RBC) [Mass/Vol] 32.9 g/dL 32-36 [facility] Mean platelet volume determi nationOrdered By: Ernesto Hull on 03-24-2024 Platelet mean volume (Bld) [Entitic vol] 9.7 fL 6.2-12.0 [facility] Monocyte percentageOrdered B y: Ernesto Hull on 03-24-2024 Monocytes/100 WBC (Bld) 7.1 % 0-10 [facility] Neutrophil percentageOrdered By: Ernesto Hull on 03-24-2024 Neutrophils/100 WBC (Bld) 69.3 % 47-70 [facility] Nucleated red blood cell per centageOrdered By: Ernesto Hull on 03-24-2024 Nucleated RBC/100 WBC (Bld) [Ratio] 0 % 0-5 [facility] Platelet countOrdered By: Yared Hull on 03-24-2024 Platelets (Bld) [#/Vol] 228 10*3/uL 150-450 [facility] Potassium measurementOrdered By: Ernesto Hull on 03-24-2024 Potassium [Moles/Vol] 3.8 mmol/L 3.5-5.1 [facility] RBC Auto (Bld) [#/Vol]Ordere d By: Ernesto Hull on 03-24-2024 RBC (Bld) [#/Vol] 5.79 10*6/uL 4.6-6.2 [facility] Serum anion gap measurementO rdered By: Ernesto Hull on 03-24-2024 Anion gap [Moles/Vol] 5 mmol/L 5-15 [facility] Serum globulin measurementOr dered By: Ernesto Hull on 03-24-2024 Globulin (S) [Mass/Vol] 4.2 g/dL 2.2-4.2 [facility] Serum or plasma alanine nieves otransferase (ALT) measurementOrdered By: Ernesto Hull on 03-24-2024 ALT [Catalytic activity/Vol] 58 U/L 16-61 [facility] Serum or plasma albumin jeff urement (mass/volume)Ordered By: Ernesto Hull on 03-24-2024 Albumin [Mass/Vol] 4.2 g/dL 3.2-5.0 [facility] Serum or plasma alkaline chantal sphatase measurementOrdered By: Ernesto Hull on 03-24-2024 ALP [Catalytic activity/Vol] 49 U/L 45-117 [facility] Serum or plasma calcium jeff urement (mass/volume)Ordered By: Ernesto Hull on 03-24-2024 Calcium [Mass/Vol] 9.9 mg/dL 8.5-10.1 [facility] Serum or plasma creatinine m easurement (mass/volume)Ordered By: Ernesto Hull on 03-24-2024 Creatinine [Mass/Vol] 0.89 mg/dL 0.70-1.30 [facility] Comment on above: The validity of the calculated GFR & GFRAA in patients over 70 years has not been determined. Clinical correlation is essential. Serum or plasma urea nitroge n measurement (mass/volume)Ordered By: Ernesto Hull on 03-24-2024 Urea nitrogen [Mass/Vol] 17 mg/dL 7-18 [facility] Sodium levelOrdered By: Ernesto Hull on 03-24-2024 Sodium [Moles/Vol] 135 mmol/L Low 136-145 [facility] Total proteinOrdered By: Elizabeth Hull on 03-24-2024 Protein [Mass/Vol] 8.4 g/dL High 6.4-8.2 [facility] White blood cell (WBC) count Ordered By: Ernesto Hull on 03-24-2024 WBC (Bld) [#/Vol] 11.2 10*3/uL High 4.4-11.0 [facility] Absolute neutrophil countOrd ered By: Ernesto Hull on 03-21-2024 Neutrophils (Bld) [#/Vol] 5.9 10*3/uL 2.0-7.7 [facility] Albumin to globulin ratioOrd ered By: Ernesto Hull on 03-21-2024 Albumin/Globulin [Mass ratio] 0.9 {ratio} 0.9-2.4 [facility] Basophil percentageOrdered B y: Ernesto Hull on 03-21-2024 Basophils/100 WBC (Bld) 0.5 % 0-1 [facility] Bilirubin, totalOrdered By: Ernesto Hull on 03-21-2024 Bilirubin [Mass/Vol] 0.30 mg/dL 0.20-1.00 [facility] Comment on above: For patients on eltr ombopag therapy, use of Dimension [place] TBIL is not recommended. Blood urea nitrogen (BUN)/cr eatinine ratioOrdered By: Ernesto Hull on 03-21-2024 Urea nitrogen/Creatinine [Mass ratio] 16.5 mg/mg 10-20 [facility] CBC W/Diff, Automatedon Absolute Lymph 1.95 X10 3/uL Normal 0.83-4.51 [facility] Comment on above: Performed By: #### L 500.4050, L501.4900, L100.0100, L502.0250, L501.6400 #### [facility] [address] [place], [place], [address] Absolute Neut 5.9 X10 3/uL Normal 2.0-7.7 [facility] Comment on above: Performed By: #### L 500.4050, L501.4900, L100.0100, L502.0250, L501.6400 #### [facility] [address] [place], [address] Basophils/100 WBC (Bld) 0.5 % Normal 0-1 [facility] Comment on above: Performed By: #### L 500.4050, L501.4900, L100.0100, L502.0250, L501.6400 #### [facility] [address] [place], [address] Eosinophils/100 WBC (Bld) 1.7 % Normal 0-5 [facility] Comment on above: Performed By: #### L 500.4050, L501.4900, L100.0100, L502.0250, L501.6400 #### [facility] [address] [place], [address] Erythrocyte distribution width (RBC) [Ratio] 13.0 % Normal 11.6-14.6 [facility] Comment on above: Performed By: #### L 500.4050, L501.4900, L100.0100, L502.0250, L501.6400 #### [facility] [address] [place], [address] Hematocrit (Bld) [Volume fraction] 50.3 % Normal 40-54 [facility] Comment on above: Performed By: #### L 500.4050, L501.4900, L100.0100, L502.0250, L501.6400 #### [facility] [address] [place], [address] Hemoglobin (Bld) [Mass/Vol] 16.2 g/dL Normal 13.0-16.5 [facility] Comment on above: Performed By: #### L 500.4050, L501.4900, L100.0100, L502.0250, L501.6400 #### [facility] [address] [place], [address] IG% 0.300 Normal 0.0-0.9 [facility] Comment on above: Result Comment: IG% - Immature Granulocytes (promyelocytes, myelocytes and metamyelocytes) > 1% indicates that a LEFT SHIFT is Present. Performed By: #### L 500.4050, L501.4900, L100.0100, L502.0250, L501.6400 #### [facility] [address] [place], [address] Lymphocytes/100 WBC (Bld) 22.4 % Normal 19-41 [facility] Comment on above: Performed By: #### L 500.4050, L501.4900, L100.0100, L502.0250, L501.6400 #### [facility] [address] [place], [address] MCH (RBC) [Entitic mass] 29.6 pg Normal 27.0-32.0 [facility] Comment on above: Performed By: #### L 500.4050, L501.4900, L100.0100, L502.0250, L501.6400 #### [facility] [address] [place], [address] MCHC (RBC) [Mass/Vol] 32.2 g/dL Normal 32-36 [facility] Comment on above: Performed By: #### L 500.4050, L501.4900, L100.0100, L502.0250, L501.6400 #### [facility] [address] [place], [address] MCV (RBC) [Entitic vol] 92.0 fL Normal 80-94 [facility] Comment on above: Performed By: #### L 500.4050, L501.4900, L100.0100, L502.0250, L501.6400 #### [facility] [address] [place], [address] Monocytes/100 WBC (Bld) 7.0 % Normal 0-10 [facility] Comment on above: Performed By: #### L 500.4050, L501.4900, L100.0100, L502.0250, L501.6400 #### [facility] [address] [place], [address] Neutrophils/100 WBC (Bld) 68.1 % Normal 47-70 [facility] Comment on above: Performed By: #### L 500.4050, L501.4900, L100.0100, L502.0250, L501.6400 #### [facility] [address] [place], [address] Nucleated RBC (Bld) [#/Vol] 0 10*3/uL Normal 0-5 [facility] Comment on above: Performed By: #### L 500.4050, L501.4900, L100.0100, L502.0250, L501.6400 #### [facility] [address] [place], [address] Platelet mean volume (Bld) [Entitic vol] 10.0 fL Normal 6.2-12.0 [facility] Comment on above: Performed By: #### L 500.4050, L501.4900, L100.0100, L502.0250, L501.6400 #### [facility] [address] [place], [address] Platelets (Bld) [#/Vol] 192 10*3/uL Normal 150-450 [facility] Comment on above: Performed By: #### L 500.4050, L501.4900, L100.0100, L502.0250, L501.6400 #### [facility] [address] [place], [address] RBC (Bld) [#/Vol] 5.47 10*6/uL Normal 4.6-6.2 [facility] Comment on above: Performed By: #### L 500.4050, L501.4900, L100.0100, L502.0250, L501.6400 #### [facility] [address] [place], [address] RDW SD 43.9 fl Normal 35.1-43.9 [facility] Comment on above: Performed By: #### L 500.4050, L501.4900, L100.0100, L502.0250, L501.6400 #### [facility] [address] [place], [address] WBC (Bld) [#/Vol] 8.7 10*3/uL Normal 4.4-11.0 [facility] Comment on above: Performed By: #### L 500.4050, L501.4900, L100.0100, L502.0250, L501.6400 #### [facility] [address] [place], [place], [id number] Carbon dioxide measurementOr dered By: Ernesto Hull on 03-21-2024 CO2 [Moles/Vol] 23.0 mmol/L 21.0-32.0 [facility] Chloride measurementOrdered By: Ernesto Hull on 03-21-2024 Chloride [Moles/Vol] 108 mmol/L High 98-107 [facility] Cholesterolon 03-21-2024 Cholesterol [Mass/Vol] 228 mg/dL High 200 [facility] Comment on above: Result Comment: <200 mg/dL Desirable 200-240 mg/dL Borderline >240 mg/dL High Risk Performed By: #### L 500.4050, L501.4900, L100.0100, L502.0250, L501.6400 #### [facility] [address] [place], [address] Comprehensive Metabolic Prof ilon 03-21-2024 Albumin [Mass/Vol] 3.6 g/dL Normal 3.2-5.0 [facility] Comment on above: Performed By: #### L 500.4050, L501.4900, L100.0100, L502.0250, L501.6400 #### [facility] [address] [place], [address] Albumin/Globulin [Mass ratio] 0.9 {ratio} Normal 0.9-2.4 [facility] Comment on above: Performed By: #### L 500.4050, L501.4900, L100.0100, L502.0250, L501.6400 #### [facility] [address] [place], [address] ALK P 43 U/L Low 45-117 [facility] Comment on above: Performed By: #### L 500.4050, L501.4900, L100.0100, L502.0250, L501.6400 #### [facility] [address] [place], [address] ALT [Catalytic activity/Vol] 37 U/L Normal 16-61 [facility] Comment on above: Performed By: #### L 500.4050, L501.4900, L100.0100, L502.0250, L501.6400 #### [facility] [address] [place], [address] AST [Catalytic activity/Vol] 15 U/L Normal 15-37 [facility] Comment on above: Performed By: #### L 500.4050, L501.4900, L100.0100, L502.0250, L501.6400 #### [facility] [address] [place], [address] Bilirubin [Mass/Vol] 0.30 mg/dL Normal 0.20-1.00 [facility] Comment on above: Result Comment: For patients on eltrombopag therapy, use of Dimension [place] TBIL is not recommended. Performed By: #### L 500.4050, L501.4900, L100.0100, L502.0250, L501.6400 #### [facility] [address] [place], [address] BUN/CRE 16.5 RATIO Normal 10-20 [facility] Comment on above: Performed By: #### L 500.4050, L501.4900, L100.0100, L502.0250, L501.6400 #### [facility] [address] [place], [address] CA,Total 9.3 mg/dL Normal 8.5-10.1 [facility] Comment on above: Performed By: #### L 500.4050, L501.4900, L100.0100, L502.0250, L501.6400 #### [facility] [address] [place], [address] Chloride [Moles/Vol] 108 mmol/L High 98-107 [facility] Comment on above: Performed By: #### L 500.4050, L501.4900, L100.0100, L502.0250, L501.6400 #### [facility] [address] [place], [address] CO2 [Moles/Vol] 23.0 mmol/L Normal 21.0-32.0 [facility] Comment on above: Performed By: #### L 500.4050, L501.4900, L100.0100, L502.0250, L501.6400 #### [facility] [address] [place], [address] Creatinine [Mass/Vol] 0.85 mg/dL Normal 0.70-1.30 [facility] Comment on above: Result Comment: The validity of the calculated GFR GFRAA in patients over 70 years has not been determined. Clinical correlation is essential. Performed By: #### L 500.4050, L501.4900, L100.0100, L502.0250, L501.6400 #### [facility] [address] [place], [address] EST GFR - AA 125 mL/min Normal >60 [facility] Comment on above: Result Comment: Afri can Finnish GFR Calc Performed By: #### L 500.4050, L501.4900, L100.0100, L502.0250, L501.6400 #### [facility] [address] [place], [address] GAP 5 Normal 5-15 [facility] Comment on above: Performed By: #### L 500.4050, L501.4900, L100.0100, L502.0250, L501.6400 #### [facility] [address] [place], [address] GFR/1.73 sq M.predicted among non-blacks MDRD (S/P/Bld) [Vol rate/Area] 103 mL/min/{1.73_m2} Normal >60 [facility] Comment on above: Result Comment: Non- GFR Calc Performed By: #### L 500.4050, L501.4900, L100.0100, L502.0250, L501.6400 #### [facility] [address] [place], [address] Globulin (S) [Mass/Vol] 4.1 g/dL Normal 2.2-4.2 [facility] Comment on above: Performed By: #### L 500.4050, L501.4900, L100.0100, L502.0250, L501.6400 #### [facility] [address] [place], [address] Glucose [Mass/Vol] 169 mg/dL High 74-106 [facility] Comment on above: Result Comment: Fast ing Glucose result greater than or equal to 126 mg/dL suggests DIABETES MELLITUS per A.D.A. criteria. Performed By: #### L 500.4050, L501.4900, L100.0100, L502.0250, L501.6400 #### [facility] [address] [place], [address] Potassium [Moles/Vol] 4.3 mmol/L Normal 3.5-5.1 [facility] Comment on above: Performed By: #### L 500.4050, L501.4900, L100.0100, L502.0250, L501.6400 #### [facility] [address] [place], [address] Sodium [Moles/Vol] 136 mmol/L Normal 136-145 [facility] Comment on above: Performed By: #### L 500.4050, L501.4900, L100.0100, L502.0250, L501.6400 #### [facility] [address] [place], [address] T PROT 7.7 g/dL Normal 6.4-8.2 [facility] Comment on above: Performed By: #### L 500.4050, L501.4900, L100.0100, L502.0250, L501.6400 #### [facility] [address] [place], [address] Urea nitrogen [Mass/Vol] 14 mg/dL Normal 7-18 [facility] Comment on above: Performed By: #### L 500.4050, L501.4900, L100.0100, L502.0250, L501.6400 #### [facility] [address] [place], [address] Eosinophil percentageOrdered By: Ernesto Hull on 03-21-2024 Eosinophils/100 WBC (Bld) 1.7 % 0-5 [facility] Erythrocyte distribution wid th (RBC) [Ratio]Ordered By: Ernesto Hull on 03-21-2024 Erythrocyte distribution width (RBC) [Entitic vol] 43.9 fL 35.1-43.9 [facility] Erythrocyte distribution wid th ratioOrdered By: Ernesto Hull on 03-21-2024 Erythrocyte distribution width (RBC) [Ratio] 13.0 % 11.6-14.6 [facility] Estimated glomerular filtrat ion rate (GFR) AmericanOrdered By: Ernesto Hull on 03-21-2024 Estimated GFR (MDRD) Amer 125 mL/min >60 [facility] Comment on above: GFR Calc Glomerular filtration rate ( GFR) estimationOrdered By: Ernesto Hull on 03-21-2024 Estimated GFR (MDRD) Non-Af Amer 103 mL/min >60 [facility] Comment on above: Non- GFR Calc Glucose measurementOrdered B y: Ernesto Hull on 03-21-2024 Glucose [Mass/Vol] 169 mg/dL High 74-106 [facility] Comment on above: Fasting Glucose resu lt greater than or equal to 126 mg/dL suggests DIABETES MELLITUS per A.D.A. criteria. Hematocrit Auto (Bld) [Volum e fraction]Ordered By: Ernesto Hull on 03-21-2024 Hematocrit (Bld) [Volume fraction] 50.3 % 40-54 [facility] Hemoglobin measurementOrdere d By: Ernesto Hull on 03-21-2024 Hemoglobin (Bld) [Mass/Vol] 16.2 g/dL 13.0-16.5 [facility] High Density Lipoproteinon 0 03-21-2024 Cholesterol in HDL [Mass/Vol] 42 mg/dL Normal [facility] Comment on above: Result Comment: The drugs N-Acetylcysteine and Metamizole may falsely depress this assay. Reference Range HDL <40 mg/dL Low HDL Cholesterol HDL >or= 60 mg/dL High HDL Cholesterol Performed By: #### L 500.4050, L501.4900, L100.0100, L502.0250, L501.6400 #### [facility] [place], [address] High density lipoprotein (HD L) measurementOrdered By: Ernesto Hull on 03-21-2024 Cholesterol in HDL [Mass/Vol] 42 mg/dL >40 [facility] Comment on above: The drugs N-Acetylcy steine and Metamizole may falsely depress this assay. Reference Range HDL <40 mg/dL Low HDL Cholesterol HDL >or= 60 mg/dL High HDL Cholesterol Immature granulocytes/100 WB C Auto (Bld)Ordered By: Ernesto Hull on 03-21-2024 Immature granulocytes/100 WBC (Bld) 0.300 % 0.0-0.9 [facility] Comment on above: IG% - Immature Granu locytes (promyelocytes, myelocytes and metamyelocytes) > 1% indicates that a LEFT SHIFT is Present. Laboratory - Chemistry and C hemistry - challengeOrdered By: Ernesto Hull on 03-21-2024 AST [Catalytic activity/Vol] 15 U/L 15-37 [facility] Lymphocytes Auto (Unsp spec) [#/Vol]Ordered By: Ernesto Hull on 03-21-2024 Lymphocytes (Bld) [#/Vol] 1.95 10*3/uL 0.83-4.5 1 [facility] Lymphocytes/100 WBC Auto (Un sp spec)Ordered By: Ernesto Hull on 03-21-2024 Lymphocytes/100 WBC (Bld) 22.4 % 19-41 [facility] MCV (mean corpuscular volume ) determinationOrdered By: Ernesto Hull on 03-21-2024 MCV (RBC) [Entitic vol] 92.0 fL 80-94 [facility] Mean corpuscular hemoglobin (MCH) determinationOrdered By: Ernesto Hull on 03-21-2024 MCH (RBC) [Entitic mass] 29.6 pg 27.0-32.0 [facility] Mean corpuscular hemoglobin concentration (MCHC) determinationOrdered By: Ernesto Hull on 03-21-2024 MCHC (RBC) [Mass/Vol] 32.2 g/dL 32-36 [facility] Mean platelet volume determi nationOrdered By: Ernesto Hull on 03-21-2024 Platelet mean volume (Bld) [Entitic vol] 10.0 fL 6.2-12.0 [facility] Microalb:Creat Ratio,Random URon 03-21-2024 Creatinine [Mass/Vol] 139.00 mg/dL Normal NO RANGE EST . [facility] Comment on above: Performed By: #### L 500.4050, L501.4900, L100.0100, L502.0250, L501.6400 #### [facility] [address] [place], [place], [address] MALB:CRE 13.0 mg/g CRE Normal <30 mg/g CRE [facility] Comment on above: Performed By: #### L 500.4050, L501.4900, L100.0100, L502.0250, L501.6400 #### [facility] [address] [place], [address] MICROALBUMIN,UR 18.1 mg/L Normal NO RANGE EST. [facility] Comment on above: Performed By: #### L 500.4050, L501.4900, L100.0100, L502.0250, L501.6400 #### [facility] [address] [place], [place], [id number] Monocyte percentageOrdered B y: Ernesto Hull on 03-21-2024 Monocytes/100 WBC (Bld) 7.0 % 0-10 [facility] Neutrophil percentageOrdered By: Ernesto Hull on 03-21-2024 Neutrophils/100 WBC (Bld) 68.1 % 47-70 [facility] Nucleated red blood cell per centageOrdered By: Ernesto Hull on 03-21-2024 Nucleated RBC/100 WBC (Bld) [Ratio] 0 % 0-5 [facility] Platelet countOrdered By: Yared Hull on 03-21-2024 Platelets (Bld) [#/Vol] 192 10*3/uL 150-450 [facility] Potassium measurementOrdered By: Ernesto Hull on 03-21-2024 Potassium [Moles/Vol] 4.3 mmol/L 3.5-5.1 [facility] RBC Auto (Bld) [#/Vol]Ordere d By: Ernesto Hull on 03-21-2024 RBC (Bld) [#/Vol] 5.47 10*6/uL 4.6-6.2 [facility] Random urine microalbumin me asurementOrdered By: Ernesto Hull on 01-06-2025 Urine Random Microalbumin 18.1 mg/L NO RANGE E ST. [facility] Serum anion gap measurementO rdered By: Ernesto Hull on 03-21-2024 Anion gap [Moles/Vol] 5 mmol/L 5-15 [facility] Serum globulin measurementOr dered By: Ernesto Hull on 03-21-2024 Globulin (S) [Mass/Vol] 4.1 g/dL 2.2-4.2 [facility] Serum or plasma alanine nieves otransferase (ALT) measurementOrdered By: Ernesto Hull on 03-21-2024 ALT [Catalytic activity/Vol] 37 U/L 16-61 [facility] Serum or plasma albumin jeff urement (mass/volume)Ordered By: Ernesto Hull on 03-21-2024 Albumin [Mass/Vol] 3.6 g/dL 3.2-5.0 [facility] Serum or plasma alkaline chantal sphatase measurementOrdered By: Ernesto Hull on 03-21-2024 ALP [Catalytic activity/Vol] 43 U/L Low 45-117 [facility] Serum or plasma calcium jeff urement (mass/volume)Ordered By: Ernesto Hull on 03-21-2024 Calcium [Mass/Vol] 9.3 mg/dL 8.5-10.1 [facility] Serum or plasma cholesterol measurement (mass/volume)Ordered By: Ernesto Hull on 03-21-2024 Cholesterol [Mass/Vol] 228 mg/dL High <200 [facility] Comment on above: <200 mg/dL Desirable 200-240 mg/dL Borderline >240 mg/dL High Risk Serum or plasma creatinine m easurement (mass/volume)Ordered By: Ernesto Hull on 03-21-2024 Creatinine [Mass/Vol] 0.85 mg/dL 0.70-1.30 [facility] Comment on above: The validity of the calculated GFR & GFRAA in patients over 70 years has not been determined. Clinical correlation is essential. Serum or plasma urea nitroge n measurement (mass/volume)Ordered By: Ernesto Hull on 03-21-2024 Urea nitrogen [Mass/Vol] 14 mg/dL 7-18 [facility] Sodium levelOrdered By: Ernesto Hull on 03-21-2024 Sodium [Moles/Vol] 136 mmol/L 136-145 [facility] Total proteinOrdered By: Elizabeth Hull on 03-21-2024 Protein [Mass/Vol] 7.7 g/dL 6.4-8.2 [facility] Urine albumin/creatinine rat io for detection of microalbuminuriaOrdered By: Ernesto Hull on 03-21-2024 Urine Microalbumin/Creatinine Ratio 13.0 mg/g CRE <30 [facility] Urine creatinine measurement (mass/volume)Ordered By: Ernesto Hull on 03-21-2024 Creatinine (U) [Mass/Vol] 139.00 mg/dL NO RANGE EST. [facility] White blood cell (WBC) count Ordered By: Ernesto Hull on 03-21-2024 WBC (Bld) [#/Vol] 8.7 10*3/uL 4.4-11.0 [facility] Absolute lymphocyte countOrd ered By: Dr. Hull on 06-12-2022 Lymphocytes Auto (Unsp spec) [#/Vol] 1.69 10*3/uL 0.83-4.51 [facility] Basophil percentageOrdered B y: Dr. Hull on 06-12-2022 Basophil percentage 0 SEEN /hpf 0-5 [facility] Basophils/100 WBC (Bld) 0.4 % 0-1 [facility] Bilirubin [Mass/Vol] 0.20 mg/dL 0.20-1.00 [facility] Comment on above: For patients on eltr ombopag therapy, use of Dimension [place] TBIL is not recommended. Chloride [Moles/Vol] 109 mmol/L 98-107 [facility] Eosinophils/100 WBC (Bld) 3.6 % 0-5 [facility] Glucose [Mass/Vol] 211 mg/dL 74-106 [facility] Comment on above: Glucose result great er than or equal to 200 mg/dLsuggests DIABETES MELLITUS per A.D.A. criteria. Neutrophils (Bld) [#/Vol] 5.6 10*3/uL 2.0-7.7 [facility] Neutrophils/100 WBC (Bld) 65.4 % 47-70 [facility] Potassium [Moles/Vol] 4.3 mmol/L 3.5-5.1 [facility] Protein [Mass/Vol] 7.6 g/dL 6.4-8.2 [facility] Sodium [Moles/Vol] 138 mmol/L 136-145 [facility] WBC (Bld) [#/Vol] 8.6 10*3/uL 4.4-11.0 [facility] Bilirubin Test strip Ql (U)O rdered By: Dr. Hull on 06-12-2022 Bilirubin Ql (U) Negative Negative [facility] Blood erythrocytes count (nu mber/volume)Ordered By: Dr. Hull on 06-12-2022 RBC (Bld) [#/Vol] 5.37 10*6/uL 4.6-6.2 [facility] Blood hemoglobin measurement (mass/volume)Ordered By: Dr. Hull on 06-12-2022 Hemoglobin (Bld) [Mass/Vol] 16.3 g/dL 13.0-16.5 [facility] Blood lymphocytes/100 leukoc ytesOrdered By: Dr. Hull on 06-12-2022 Lymphocytes/100 WBC (Bld) 19.8 % 19-41 [facility] Blood monocytes/100 leukocyt esOrdered By: Dr. Hull on 06-12-2022 Monocytes/100 WBC (Bld) 10.4 % 0-10 [facility] Blood platelet mean volumeOr dered By: Dr. Hull on 06-12-2022 Platelet mean volume (Bld) [Entitic vol] 10.3 fL 6.2-12.0 [facility] Determination of erythrocyte mean corpuscular volume (MCV)Ordered By: Dr. Hull on 06-12-2022 MCV (RBC) [Entitic vol] 93.5 fL 80-94 [facility] Hematocrit Auto (Bld) [Volum e fraction]Ordered By: Dr. Hull on 06-12-2022 Hematocrit (Bld) [Volume fraction] 50.2 % 40-54 [facility] Ketones Test strip Ql (U)Ord ered By: Dr. Hull on 06-12-2022 Ketones Ql (U) Negative Negative [facility] - Chemistry and C hemistry - challengeOrdered By: Dr. Hull on 06-12-2022 ALP [Catalytic activity/Vol] 51 U/L 45-117 [facility] ALT [Catalytic activity/Vol] 68 U/L 16-61 [facility] CO2 [Moles/Vol] 26.0 mmol/L 21.0-32.0 [facility] Globulin (S) [Mass/Vol] 4.0 g/dL 2.2-4.2 [facility] Urea nitrogen/Creatinine [Mass ratio] 13.7 mg/mg 10-20 [facility] - Hematology and Cell countsOrdered By: Dr. Hull on 06-12-2022 Erythrocyte distribution width (RBC) [Entitic vol] 48.6 fL 35.1-43.9 [facility] Erythrocyte distribution width (RBC) [Ratio] 14.2 % 11.6-14.6 [facility] Immature granulocytes/100 WBC (Bld) 0.400 % 0.0-0.9 [facility] Comment on above: IG% - Immature Granu locytes (promyelocytes, myelocytes and metamyelocytes) > 1% indicates that a LEFT SHIFT is Present. MCH (RBC) [Entitic mass] 30.4 pg 27.0-32.0 [facility] Nucleated RBC/100 WBC (Bld) [Ratio] 0 % 0-5 [facility] MCHC Auto (RBC) [Mass/Vol]Or dered By: Dr. Hull on 06-12-2022 MCHC (RBC) [Mass/Vol] 32.5 g/dL 32-36 [facility] Mucus LM Ql (Urine sed)Order ed By: Dr. Hull on 06-12-2022 Mucus Ql (Urine sed) 0 SEEN /hpf [facility] Nitrite Test strip Ql (U)Ord ered By: Dr. Hull on 06-12-2022 Nitrite Ql (U) Negative Negative [facility] No Panel InformationOrdered By: Dr. Hull on 06-12-2022 Estimated GFR (MDRD) Amer 121 mL/min >60 [facility] Comment on above: GFR Calc Estimated GFR (MDRD) Non-Af Amer 100 mL/min >60 [facility] Comment on above: Non- GFR Calc Prostate Specific Antigen Total 1.89 ng/mL 0.0-4.0 [facility] Comment on above: This test was perfor med using the TPSA assay method for theLuminous Medical[employer] chemistry system. Values obtained with differentassay methods cannot be used interchangably.When changing PSA assays in the course of monitoring apatient, additional sequential testing should be carriedout to confirm baseline values. Platelets bldOrdered By: Dr. Hull on 06-12-2022 Platelets (Bld) [#/Vol] 203 10*3/uL 150-450 [facility] Protein Test strip Ql (U)Ord ered By: Dr. Hull on 06-12-2022 Protein Ql (U) Negative Negative [facility] Serum or plasma albumin jeff urement (mass/volume)Ordered By: Dr. Hull on 06-12-2022 Albumin [Mass/Vol] 3.6 g/dL 3.2-5.0 [facility] Serum or plasma albumin/glob ulin mass ratioOrdered By: Dr. Hull on 06-12-2022 Albumin/Globulin [Mass ratio] 0.9 {ratio} 0.9-2.4 [facility] Serum or plasma calcium jeff urement (mass/volume)Ordered By: Dr. Hull on 06-12-2022 Calcium [Mass/Vol] 9.0 mg/dL 8.5-10.1 [facility] Serum or plasma creatinine m easurement (mass/volume)Ordered By: Dr. Hull on 06-12-2022 Creatinine [Mass/Vol] 0.88 mg/dL 0.70-1.30 [facility] Comment on above: The validity of the calculated GFR & GFRAA in patients over 70 years has not been determined. Clinical correlation is essential. Serum or plasma urea nitroge n measurement (mass/volume)Ordered By: Dr. Hull on 06-12-2022 Urea nitrogen [Mass/Vol] 12 mg/dL 7-18 [facility] Squamous epithelial cells de tection in urine sediment by light microscopyOrdered By: Dr. Hull on 06-12-2022 Epithelial cells.squamous LM Ql (Urine sed) 0 SEEN /hpf 0-5 [facility] Thin prep Papanicolaou smear with manual screeningOrdered By: Dr. Hull on 06-12-2022 Thin prep Papanicolaou smear with manual screening 34 U/L 15-37 [facility] Thin prep Papanicolaou smear with manual screening 3 5-15 [facility] Urine blood detectionOrdered By: Dr. Hull on 06-12-2022 RBC Ql (U) Negative Negative [facility] RBC Ql (U) 0 SEEN /hpf 0-5 [facility] Urine clarityOrdered By: Dr. Hull on 06-12-2022 Clarity (U) Clear Clear [facility] Urine color determinationOrd ered By: Dr. Hull on 06-12-2022 Color (U) Yellow Yellow [facility] Urine glucose detectionOrder ed By: Dr. Hull on 06-12-2022 Glucose Ql (U) 1000 mg/dl Normal [facility] Urine leukocyte esterase det ection by dipstickOrdered By: Dr. Hull on 06-12-2022 Leukocyte esterase Test strip Ql (U) Negative Negative [facility] Urine pHOrdered By: Dr. Amrit garcia on 06-12-2022 pH (U) 5.0 [pH] 5.0 - 8.0 [facility] Urine sediment bacteria coun t by microscopy (number/high power field)Ordered By: Dr. Hull on 06-12-2022 Bacteria LM.HPF (Urine sed) [#/Area] 0 /[HPF] None Seen [facility] Urine specific gravity measu rementOrdered By: Dr. Hull on 06-12-2022 Specific gravity (U) [Rel density] 1.015 1.002-1.030 [facility] Urobilinogen Auto test strip Ql (U)Ordered By: Dr. Hull on 06-12-2022 Urobilinogen Ql (U) Normal mg/dl Normal [facility] Absolute lymphocyte counton 09-24-2021 Lymphocytes Auto (Unsp spec) [#/Vol] 1.77 10*3/uL 0.83-4.51 [facility] Work Phone: Basophil percentageon 2021 Basophils/100 WBC (Bld) 0.4 % 0-1 [facility] Work Phone: Bilirubin [Mass/Vol] 0.40 mg/dL 0.20-1.00 [facility] Work Phone: Comment on above: For patients on eltr ombopag therapy, use of Dimension [place] TBIL is not recommended. Chloride [Moles/Vol] 102 mmol/L 98-107 [facility] Work Phone: [phone] Eosinophils/100 WBC (Bld) 2.6 % 0-5 [facility] Work Phone: [phone] Glucose [Mass/Vol] 335 mg/dL 74-106 [facility] Work Phone: Comment on above: Glucose result great er than or equal to 200 mg/dLsuggests DIABETES MELLITUS per A.D.A. criteria. Neutrophils (Bld) [#/Vol] 4.7 10*3/uL 2.0-7.7 [facility] Work Phone: Neutrophils/100 WBC (Bld) 63.0 % 47-70 [facility] Work Phone: [phone] Potassium [Moles/Vol] 3.9 mmol/L 3.5-5.1 [facility] Work Phone: Protein [Mass/Vol] 7.5 g/dL 6.4-8.2 [facility] Work Phone: Sodium [Moles/Vol] 134 mmol/L 136-145 [facility] Work Phone: WBC (Bld) [#/Vol] 7.4 10*3/uL 4.4-11.0 [facility] Work Phone: Blood erythrocytes count (nu mber/volume)on 09-24-2021 RBC (Bld) [#/Vol] 4.99 10*6/uL 4.6-6.2 [facility]: Blood hemoglobin measurement (mass/volume)on 09-24-2021 Hemoglobin (Bld) [Mass/Vol] 15.1 g/dL 13.0-16.5 [facility] Work Phone: [phone] Blood lymphocytes/100 leukoc yteson 09-24-2021 Lymphocytes/100 WBC (Bld) 23.9 % 19-41 [facility] Work Phone: [phone] Blood monocytes/100 leukocyt eson 09-24-2021 Monocytes/100 WBC (Bld) 9.7 % 0-10 [facility] Work Phone: Blood platelet mean volumeon 09-24-2021 Platelet mean volume (Bld) [Entitic vol] 10.5 fL 6.2-12.0 [facility] Work Phone: Determination of erythrocyte mean corpuscular volume (MCV)on 09-24-2021 MCV (RBC) [Entitic vol] 90.8 fL 80-94 [facility] Work Phone: Hematocrit Auto (Bld) [Volum e fraction]on 09-24-2021 Hematocrit (Bld) [Volume fraction] 45.3 % 40-54 [facility] Work Phone: Laboratory - Chemistry and C hemistry - challengeon 09-24-2021 ALP [Catalytic activity/Vol] 50 U/L 45-117 [facility] Work Phone: ALT [Catalytic activity/Vol] 74 U/L 16-61 [facility] Work Phone: CO2 [Moles/Vol] 26.0 mmol/L 21.0-32.0 [facility] Work Phone: Globulin (S) [Mass/Vol] 3.8 g/dL 2.2-4.2 [facility] Work Phone: Urea nitrogen/Creatinine [Mass ratio] 15.4 mg/mg 10-20 [facility] Work Phone: Laboratory - Hematology and Cell countson 09-24-2021 Erythrocyte distribution width (RBC) [Entitic vol] 43.3 fL 35.1-43.9 [facility] Work Phone: Erythrocyte distribution width (RBC) [Ratio] 13.1 % 11.6-14.6 [facility] Work Phone: Immature granulocytes/100 WBC (Bld) 0.400 % 0.0-0.9 [facility] Work Phone: Comment on above: IG% - Immature Granu locytes (promyelocytes, myelocytes and metamyelocytes) > 1% indicates that a LEFT SHIFT is Present. MCH (RBC) [Entitic mass] 30.3 pg 27.0-32.0 [facility] Work Phone: Nucleated RBC/100 WBC (Bld) [Ratio] 0 % 0-5 [facility] Work Phone: MCHC Auto (RBC) [Mass/Vol]on 09-24-2021 MCHC (RBC) [Mass/Vol] 33.3 g/dL 32-36 [facility] Work Phone: No Panel Informationon 09-24 Estimated GFR (MDRD) Amer 107 mL/min >60 [facility] Work Phone: Comment on above: GFR Calc Estimated GFR (MDRD) Non-Af Amer 89 mL/min >60 [facility] Work Phone: Comment on above: Non- GFR Calc Thyroid Stimulating Hormone (TSH) 0.71 uIU/mL 0.358-3.74 [facility] Work Phone: Platelets bldon 09-24-2021 Platelets (Bld) [#/Vol] 177 10*3/uL 150-450 [facility] Work Phone: Serum or plasma albumin jeff urement (mass/volume)on 09-24-2021 Albumin [Mass/Vol] 3.7 g/dL 3.2-5.0 [facility] Work Phone: Serum or plasma albumin/glob ulin mass ratioon 09-24-2021 Albumin/Globulin [Mass ratio] 1.0 {ratio} 0.9-2.4 [facility] Work Phone: Serum or plasma calcium jeff urement (mass/volume)on 09-24-2021 Calcium [Mass/Vol] 9.1 mg/dL 8.5-10.1 [facility] Work Phone: Serum or plasma creatinine m easurement (mass/volume)on 09-24-2021 Creatinine [Mass/Vol] 0.97 mg/dL 0.70-1.30 [facility] Work Phone: Comment on above: The validity of the calculated GFR & GFRAA in patients over 70 years has not been determined. Clinical correlation is essential. Serum or plasma urea nitroge n measurement (mass/volume)on 09-24-2021 Urea nitrogen [Mass/Vol] 15 mg/dL -18 [facility] Work Phone: Thin prep Papanicolaou smear with manual screeningon 09-24-2021 Thin prep Papanicolaou smear with manual screening 37 U/L 15-37 [facility] Work Phone: Thin prep Papanicolaou smear with manual screening 6 5-15 [facility] Work Phone: Encounters Encounter Date Encounter Type Care Provider Facility Start: 09-07-2024 End: 09-13-2024 Telephone encounter Randall Huggins MD Work Phone: Ophthalmology Comment on above: Follow Up Start: 07-01-2024 End: 07-01-2024 Office outpatient visit 15 minutes Randall Huggins MD Work Phone: Ophthalmology Comment on above: 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 Ernesto Hull MD Work Phone: [facility] Work Phone: Start: 06-23-2024 End: 06-23-[address] Ernesto Hull MD -Laboratory, 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 Start: 05-16-2024 End: 05-17-2024 Telephone encounter Randall Huggins MD Work Phone: Ophthalmology Comment on above: lab results Start: 05-05-2024 End: 05-05-2024 ambulatory RANDALL HUGGINS Facility:[facility] Start: 05-05-2024 End: 05-05-2024 ambulatory RANDALL HUGGINS Facility:[facility] Start: 05-05-2024 End: 05-05-2024 Office outpatient new 45 minutes Randall Huggins MD Work Phone: Ophthalmology Comment on above: 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 Ernesto Hull MD -Radiology, [place] Work Phone: Start: 03-24-2024 End: 03-24-2024 ambulatory Ernesto Hull Facility:[facility] Start: 03-21-2024 End: 03-21-[address] [facility] Start: 03-21-2024 End: 03-21-2024 ambulatory Ernesto Hull Facility:[facility] Start: 06-12-2022 End: 06-12-2022 ambulatory [facility] Work Phone: Start: 06-12-2022 End: 06-12-2022 Patient encounter procedure [facility] Start: 09-24-2021 End: 09-24-2021 Patient encounter procedure [facility] Procedures Date Procedure Procedure Detail Performing Clinician Start: 07-01-2024 End: 07-01-2024 Computerized ophthalmic imaging retina Randall Huggins MD Work Phone: Start: 07-01-2024 OCT ANGIOGRAPHY OU ( BOTH EYES) Randall Huggins MD Work Phone: Start: 06-03-2024 OCT ANGIOGRAPHY OU ( BOTH EYES) Randall Huggins MD Work Phone: Start: 06-03-2024 End: 06-03-2024 Computerized ophthalmic imaging retina Randall Huggins MD Work Phone: Start: 05-05-2024 End: 05-05-2024 Computerized ophthalmic imaging retina Randall Huggins MD Work Phone: Start: 03-24-2024 X-ray of chest, PA a nd lateral views Dr. Ernesto Hull MD Work Phone: Start: 05-14-2012 Lipid 1996 panel - S gloria or Plasma Randall Huggins MD Work Phone: Plan of Treatment Date Care Activity Detail Author Start: 05-05-2027 Diabetes Screening Diabetes Screening [facility] Start: 06-18-2025 End: 11-25-2025 OCT MACULA CIRRUS OU (BOTH EYES) OCT MACULA CIRRUS OU (BOTH EYES) [facility] Imaging Routine Multifocal choroiditis of both eyes Expected: 06/18/2025, Expires: 11/25/2025 [facility] Work Phone: Comment on above: Expected: 06/18/2025, Expires: Start: 05-20-2025 End: 10-27-2025 OCT MACULA CIRRUS OU (BOTH EYES) OCT MACULA CIRRUS OU (BOTH EYES) [facility] Imaging Routine Multifocal choroiditis of both eyes Expected: 05/20/2025, Expires: 10/27/2025 [facility] Work Phone: Comment on above: Expected: 05/20/2025, Expires: Start: 11-14-2024 Influenza vaccination Influenza Vaccine (#1) [facility] Start: 09-15-2024 End: 09-15-2024 Patient encounter procedure 09/15/2024 12:45 PM EDT Office Visit [facility] Ophthalmology [address] [address] Randall Huggins MD [address] [place] [address] [facility] [address] [address] Return in about 8 weeks (around 08/26/2024) Ophthalmology Comment on above: Return in about 8 weeks (around ) Start: 09-15-2024 End: 09-15-2024 Patient encounter procedure 09/15/2024 10:30 AM EDT Office Visit Rheumatology [address] [address] Cecile Olivares MD [address] [place] [address] multifocal choroiditis per [facility] Rheumatology Comment on above: multifocal choroiditis per [facility] Start: 09-02-2024 End: 09-02-2024 Patient encounter procedure 09/02/2024 9:00 AM EDT Office Visit [facility] Ophthalmology [address] [address] Randall Huggins MD [address] [place] [address] Return in about 8 weeks (around 08/26/2024) Ophthalmology Comment on above: Return in about 8 weeks (around ) Start: 07-01-2024 End: 07-01-2024 Patient encounter procedure 07/01/2024 10:00 AM EDT Office Visit [facility] Ophthalmology [address] [address] Randall Huggins MD [address] [place] [address] Return in about 1 month (around 07/04/2024). Ophthalmology Comment on above: Return in about 1 month (around ). Start: 06-03-2024 End: 06-03-2024 Patient encounter procedure Ophthalmology Comment on above: Return in about 1 month (around ). Start: 11-15-2023 Covid-19 Vaccine () Covid-19 Vaccine () [facility] Start: 11-15-2023 Influenza vaccination Influenza Vaccine (#1) [facility] Start: 05-13-2022 Urine microalbumin profile DTaP,Tdap,Td Vaccine (2 - Td or Tdap) [facility] Start: 2021 Screening for malignant neoplasm of colon [facility] Start: 05-14-2017 Lipid panel Lipid Screening [facility] Start: 1995 Hepatitis B Vaccine (1 of 3 - 19+ 3-dose series) Hepatitis B Vaccine (1 of 3 - 19+ 3-dose series) [facility] Start: 1995 Pneumococcal vaccination Pneumococcal Vaccine (1 of 2 - PCV) [facility] Start: 1994 Annual PCP Team Chronic Disease Visit Annual PCP Team Chronic Disease Visit [facility] Start: 1994 Anxiety Screening Anxiety Screening [facility] Start: 1994 BP Controlled (<130/80) BP Controlled (<130/80) [facility] Start: 1994 Depression Screening Depression Screening [facility] Start: 1994 Hepatitis C screening Hepatitis C Screening [facility] Start: 1994 HIV screening HIV Screening [facility] End: 10-27-2025 Camera fundoscopy FUNDUS PHOTOS OU (BOTH EYES) [facility] Imaging Routine Multifocal choroiditis of both eyes 1 Occurrences starting 05/05/2024 until 10/27/2025 [facility] Comment on above: 1 Occurrences starting 05/05/2024 until 10/27/2025 End: 11-25-2025 Camera fundoscopy FUNDUS PHOTOS OU (BOTH EYES) [facility] Imaging Routine Multifocal choroiditis of both eyes 1 Occurrences starting 06/03/2024 until 11/25/2025 [facility] Comment on above: 1 Occurrences starting 06/03/2024 until 11/25/2025 End: 10-27-2025 FUNDUS AUTOFLUORESCENCE PHOTO (FAF) OU (BOTH EYES) FUNDUS AUTOFLUORESCENCE PHOTO (FAF) OU (BOTH EYES) [facility] Imaging Routine Multifocal choroiditis of both eyes 1 Occurrences starting 05/05/2024 until 10/27/2025 [facility] Comment on above: 1 Occurrences starting 05/05/2024 until 10/27/2025 End: 11-25-2025 FUNDUS AUTOFLUORESCENCE PHOTO (FAF) OU (BOTH EYES) FUNDUS AUTOFLUORESCENCE PHOTO (FAF) OU (BOTH EYES) [facility] Imaging Routine Multifocal choroiditis of both eyes 1 Occurrences starting 06/03/2024 until 11/25/2025 [facility] Comment on above: 1 Occurrences starting 06/03/2024 until 11/25/2025 End: 11-25-2025 OCT ANGIOGRAPHY OU (BOTH EYES) OCT ANGIOGRAPHY OU (BOTH EYES) [facility] Imaging Routine Multifocal choroiditis of both eyes 1 Occurrences starting 06/03/2024 until 11/25/2025 [facility] Comment on above: 1 Occurrences starting 06/03/2024 until 11/25/2025 Immunizations Immunization Date Immunization Notes Care Provider Fa cility 05-13-2012 tetanus toxoid, redu kenny diphtheria toxoid, and acellular pertussis vaccine, adsorbed Randall Huggins MD Work Phone: [facility] Payers Date Payer Category Payer Self-pay [id number] 2024 Unknown [id number] 2023 Private Health Insurance [id number] 2023 Unknown [id number] Private Health Insurance [facility] [id number] Unknown [id number] Unknown YOCASTAKEILA [id number] Unknown [id number] Unknown [id number] Unknown [id number] Unknown [id number] Social History Date Type Detail Facility Start: 07-03-2017 Tobacco smoking stat us NHIS Unknown if ever smoked [facility] Start: 1975 Sex Assigned At Male W [facility] Start: 07-03-2017 End: 05-05-2024 Tobacco smoking status NHIS Smokes tobacco daily [facility] History of tobacco use Cigarette Smoker [facility] Start: 05-05-2024 End: 06-03-2024 Cigarettes smoked current (pack per day) - Reported 1 [facility] Start: 05-05-2024 Tobacco use and exposure Smokeless tobacco non-user [facility] Start: 05-05-2024 End: 07-01-2024 Alcoholic beverage intake Current drinker of alcohol (finding) [facility] Start: 05-05-2024 End: 06-03-2024 Tobacco use panel [facility] National Score (1-10 0), lower number is lower risk 71 [facility] Start: 1975 Sex assigned at Not on file [facility] Start: 06-24-2024 Sex Male (finding) [facility] Functional Status Date Assessment Result Facility 04-03-2014 Are you deaf, or do you have serious difficulty hearing No 04/03/2014 1:33 PM Kay Levin LPN No [facility] Work Phone: 04-03-2014 Are you blind, or do you have serious difficulty seeing, even when wearing glasses No 04/03/2014 1:33 PM Kay Levin LPN No [facility] 04-03-2014 Do you have serious difficulty walking or climbing stairs No 04/03/2014 1:33 PM Kay Levin LPN No [facility] 04-03-2014 Do you have difficul ty dressing or bathing No 04/03/2014 1:33 PM Kay Levin LPN No [facility] 04-03-2014 Because of a physica l, mental, or emotional condition, do you have difficulty doing errands alone such as visiting a physician's office or shopping No 04/03/2014 1:33 PM Kay Levin LPN No [facility] Mental Status Date Assessment Result Facility 04-03-2014 Because of a physica l, mental, or emotional condition, do you have serious difficulty concentrating, remembering, or making decisions No 04/03/2014 1:33 PM AMADA Kay Callahan GEMA No [facility] Clinical Notes 05-05-2024 to 09-13-2024 Telephone Encounter - Janeen Larkin - 09/13/2024 10:36 AM EDTTelephone Encounter - Janeen Larkin - 09/13/2024 10:36 AM EDRandall Matthews MD - 07/01/2024 10:57 AM EDT Note Date & Type Note Facility 09-13-2024 Telephone encounter Note I left him a message and asked him to give me a call back. [facility] 09-13-2024 Miscellaneous Notes I left him a message and asked him to give me a call back. 1) He's calling as he came in on 09/02 not knowing that his appt was cx'd, so he was rescheduled to 7/3. Unfortunately, due to the holiday, he cannot get 7/3 off from work and needs to reschedule this and is hoping to get in soon. 2) He said he also needs a rx refill of prednisone. He said he's been taking a half of a pill (2.5-mg?) From the notes, it looks like he was to discontinue this - is a rx warranted if his follow up is being pushed out further? Randall Huggins MD filed at 07/01/2024 11:41 AM Status: Signed Here for f/u regarding probable AZOOR Improving symptoms Flashes resolved Prednisone 10 mg Posterior uveitis, both eyes Course: - Noticing gradual temporal visual field deficit OU x years sometimes a/w shimmering edges - A few months ago, started having pressure OU, initially started with OS but now OD is worsening as well - Burning sensation also present but more intermittent - better on po prednisone - today on 10 mg prednisone, doing better, lesion appear to be inactive on exam and imaging Workup: - none to date ROS: POSITIVE - chronic tremor in left hand, rare lip ulcer, occasional orthostatic dizziness, tinnitus x years (has seen ENT, 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); remote h/o chlamydia as a teen but no other known STI exposure; has a pet dog NEGATIVE - denies any recent weight loss/gain, fevers/chills, night sweats, fatigue, generalized weakness, easy bruising/bleeding, intolerance to heat or cold, sicca symptoms, nasal ulcers, oral ulcers, genital ulcers, difficulty swallowing, chest pain, shortness of breath, wheezing, cough, blood in sputum, nausea, vomiting, abdominal pain, diarrhea, changes in bowel or bladder patterns, change in urine, weakness/numbness/tingling of limbs/digits, muscle pain, joint aches/pains, rash, hives, sun sensitivity, hair loss, skin discoloration, headache, seizure, hearing loss, depression, anxiety, enlarged lymph nodes. Denies recent foreign travel. Not a leonie, does not eat game Imaging: - 05/05/24: - FAF: confluent area of hypoAF in peripapillary area with hypoAF spots centered around the nerve; all areas of hypoAF are surrounded by a rim of hyperAF - FA: peripapillary window defect OU and staining of peripheral CR lesions, no vascular leakage - OCT: atrophy peripapillary and in areas of CR lesions; punctate opacities in vitreous cavity c/w cells; mild ERM Left eye -06/03/24 FAF improved hyperAF Both Eyes, OCT improved EZ Both Eyes, OCTA - no CNVM - 07/01/24: -FAF improved hyperAF Both Eyes, OCT improved EZ Both Eyes, OCTA - no CNVM Meds: - Prednisone 10 mg currently(started at 80 mg) Impression/PLAN: - Ddx includes AZOOR, sarcoidosis; relentless placoid chorioretinitis, birdshot chorioretinopathy (though no leakage on FA), less likely infectious such as TB, syphilis, less likely PIC/MFC spectrum - W/u negative syphilis, TB, ABUNDIO Hla-a29 - improved on po prednisone - inactive today on 10 mg prednisone, would need custodial immunosuppression, - Ozurdex Both Eyes vs stay on 10 mg prednisone for now - Refer to Rhuem,suggest to start Humira given the posterior uveitis - taper to 5 mg prednisone for 2 then 2.5 mg for 2 weeks then stop -encouraged close monitoring of BS checked it once [phone] would like him to check it more frequently PCP is aware that he is on prednisonen I have confirmed and edited as necessary the relevant HPI, ophthalmic history, ROS, and the neuro exam findings as obtained by others. I have seen and examined Michelle Sutton. I have discussed the case and the management of this patient's care with the Resident/Fellow, if applicable. I also have reviewed and agree with the assessment and plan as stated above and agree with all of its relevant components. documented in this encounter [facility] 09-07-2024 Telephone encounter Note 1) He's calling as he came in on 09/02 not knowing that his appt was cx'd, so he was rescheduled to 7/3. Unfortunately, due to the holiday, he cannot get 7/3 off from work and needs to reschedule this and is hoping to get in soon. 2) He said he also needs a rx refill of prednisone. He said he's been taking a half of a pill (2.5-mg?) From the notes, it looks like he was to discontinue this - is a rx warranted if his follow up is being pushed out further? Randall Huggins MD filed at 07/01/2024 11:41 AM Status: Signed Here for f/u regarding probable AZOOR Improving symptoms Flashes resolved Prednisone 10 mg Posterior uveitis, both eyes Course: - Noticing gradual temporal visual field deficit OU x years sometimes a/w shimmering edges - A few months ago, started having pressure OU, initially started with OS but now OD is worsening as well - Burning sensation also present but more intermittent - better on po prednisone - today on 10 mg prednisone, doing better, lesion appear to be inactive on exam and imaging Workup: - none to date ROS: POSITIVE - chronic tremor in left hand, rare lip ulcer, occasional orthostatic dizziness, tinnitus x years (has seen ENT, 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); remote h/o chlamydia as a teen but no other known STI exposure; has a pet dog NEGATIVE - denies any recent weight loss/gain, fevers/chills, night sweats, fatigue, generalized weakness, easy bruising/bleeding, intolerance to heat or cold, sicca symptoms, nasal ulcers, oral ulcers, genital ulcers, difficulty swallowing, chest pain, shortness of breath, wheezing, cough, blood in sputum, nausea, vomiting, abdominal pain, diarrhea, changes in bowel or bladder patterns, change in urine, weakness/numbness/tingling of limbs/digits, muscle pain, joint aches/pains, rash, hives, sun sensitivity, hair loss, skin discoloration, headache, seizure, hearing loss, depression, anxiety, enlarged lymph nodes. Denies recent foreign travel. Not a leonie, does not eat game Imaging: - 05/05/24: - FAF: confluent area of hypoAF in peripapillary area with hypoAF spots centered around the nerve; all areas of hypoAF are surrounded by a rim of hyperAF - FA: peripapillary window defect OU and staining of peripheral CR lesions, no vascular leakage - OCT: atrophy peripapillary and in areas of CR lesions; punctate opacities in vitreous cavity c/w cells; mild ERM Left eye -06/03/24 FAF improved hyperAF Both Eyes, OCT improved EZ Both Eyes, OCTA - no CNVM - 07/01/24: -FAF improved hyperAF Both Eyes, OCT improved EZ Both Eyes, OCTA - no CNVM Meds: - Prednisone 10 mg currently(started at 80 mg) Impression/PLAN: - Ddx includes AZOOR, sarcoidosis; relentless placoid chorioretinitis, birdshot chorioretinopathy (though no leakage on FA), less likely infectious such as TB, syphilis, less likely PIC/MFC spectrum - W/u negative syphilis, TB, ABUNDIO Hla-a29 - improved on po prednisone - inactive today on 10 mg prednisone, 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 I have seen and examined Michelle Sutton. I have discussed the case and the management of this patient's care with the Resident/Fellow, if applicable. I also have reviewed and agree with the assessment and plan as stated above and agree with all of its relevant components. [facility] 07-01-2024 Note Date of Procedure 07/01/2024. Communications Representative Information Wood Coater: af. Stop time: 10:23 AM. BATSHEVA Gregory . OCT Macula Interpretation Right Eye Findings include IS/OS junction, Atrophy. Left Eye Findings include IS/OS junction, Atrophy. Interval Change Right Eye Stable. Left Eye Stable. [facility] 07-01-2024 Note Date of Procedure 07/01/2024. Communications Representative Information Wood Coater: af. Stop time: 10:23 AM. BATSHEVA Gregory . Interpretation Right Eye Findings include Negative for CNV. Left Eye Findings include Negative for CNV. [facility] 07-01-2024 Note Date of Procedure 07/01/2024. Communications Representative Information Wood Coater: af. Stop time: 10:23 AM. BATSHEVA Gregory . Periphery Right Eye Pigmentation. Left Eye Pigmentation. [facility] 07-01-2024 Note Date of Procedure 07/01/2024. Communications Representative Information Wood Coater: af. Stop time: 10:23 AM. BATSHEVA Gregory . Interpretation Right Eye Hyperfluorescence, Hypofluorescence. Left Eye Hyperfluorescence, Hypofluorescence. [facility] 07-01-2024 Note HNO ID: [id number] Author: RANDALL HUGGINS MD Service: ? Author Type: Physician Type: Progress Notes Filed: 07/01/2024 11:41 Note Text: Here for f/u regarding probable AZOOR Improving symptoms Flashes resolved Prednisone 10 mg Posterior uveitis, both eyes Course: - Noticing gradual temporal visual field deficit OU x years sometimes a/w shimmering edges - A few months ago, started having pressure OU, initially started with OS but now OD is worsening as well - Burning sensation also present but more intermittent - better on po prednisone - today on 10 mg prednisone, doing better, lesion appear to be inactive on exam and imaging Workup: - none to date ROS: POSITIVE - chronic tremor in left hand, rare lip ulcer, occasional orthostatic dizziness, tinnitus x years (has seen ENT, 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); remote h/o chlamydia as a teen but no other known STI exposure; has a pet dog NEGATIVE - denies any recent weight loss/gain, fevers/chills, night sweats, fatigue, generalized weakness, easy bruising/bleeding, intolerance to heat or cold, sicca symptoms, nasal ulcers, oral ulcers, genital ulcers, difficulty swallowing, chest pain, shortness of breath, wheezing, cough, blood in sputum, nausea, vomiting, abdominal pain, diarrhea, changes in bowel or bladder patterns, change in urine, weakness/numbness/tingling of limbs/digits, muscle pain, joint aches/pains, rash, hives, sun sensitivity, hair loss, skin discoloration, headache, seizure, hearing loss, depression, anxiety, enlarged lymph nodes. Denies recent foreign travel. Not a leonie, does not eat game Imaging: - 05/05/24: - FAF: confluent area of hypoAF in peripapillary area with hypoAF spots centered around the nerve; all areas of hypoAF are surrounded by a rim of hyperAF - FA: peripapillary window defect OU and staining of peripheral CR lesions, no vascular leakage - OCT: atrophy peripapillary and in areas of CR lesions; punctate opacities in vitreous cavity c/w cells; mild ERM Left eye -06/03/24 FAF improved hyperAF Both Eyes, OCT improved EZ Both Eyes, OCTA - no CNVM - 07/01/24: -FAF improved hyperAF Both Eyes, OCT improved EZ Both Eyes, OCTA - no CNVM Meds: - Prednisone 10 mg currently(started at 80 mg) Impression/PLAN: - Ddx includes AZOOR, sarcoidosis; relentless placoid chorioretinitis, birdshot chorioretinopathy (though no leakage on FA), less likely infectious such as TB, syphilis, less likely PIC/MFC spectrum - W/u negative syphilis, TB, ABUNDIO Hla-a29 - improved on po prednisone - inactive today on 10 mg prednisone, 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 I have seen and examined Michelle Sutton. I have discussed the case and the management of this patient's care with the Resident/Fellow, if applicable. I also have reviewed and agree with the assessment and plan as stated above and agree with all of its relevant components. [facility] 07-01-2024 History of Present illness Narrative Here for f/u regarding probable AZOOR Improving symptoms Flashes resolved Prednisone 10 mg Posterior uveitis, both eyes Course: - Noticing gradual temporal visual field deficit OU x years sometimes a/w shimmering edges - A few months ago, started having pressure OU, initially started with OS but now OD is worsening as well - Burning sensation also present but more intermittent - better on po prednisone - today on 10 mg prednisone, doing better, lesion appear to be inactive on exam and imaging Workup: - none to date ROS: POSITIVE - chronic tremor in left hand, rare lip ulcer, occasional orthostatic dizziness, tinnitus x years (has seen ENT, 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); remote h/o chlamydia as a teen but no other known STI exposure; has a pet dog NEGATIVE - denies any recent weight loss/gain, fevers/chills, night sweats, fatigue, generalized weakness, easy bruising/bleeding, intolerance to heat or cold, sicca symptoms, nasal ulcers, oral ulcers, genital ulcers, difficulty swallowing, chest pain, shortness of breath, wheezing, cough, blood in sputum, nausea, vomiting, abdominal pain, diarrhea, changes in bowel or bladder patterns, change in urine, weakness/numbness/tingling of limbs/digits, muscle pain, joint aches/pains, rash, hives, sun sensitivity, hair loss, skin discoloration, headache, seizure, hearing loss, depression, anxiety, enlarged lymph nodes. Denies recent foreign travel. Not a leonie, does not eat game Imaging: - 05/05/24: - FAF: confluent area of hypoAF in peripapillary area with hypoAF spots centered around the nerve; all areas of hypoAF are surrounded by a rim of hyperAF - FA: peripapillary window defect OU and staining of peripheral CR lesions, no vascular leakage - OCT: atrophy peripapillary and in areas of CR lesions; punctate opacities in vitreous cavity c/w cells; mild ERM Left eye -06/03/24 FAF improved hyperAF Both Eyes, OCT improved EZ Both Eyes, OCTA - no CNVM - 07/01/24: -FAF improved hyperAF Both Eyes, OCT improved EZ Both Eyes, OCTA - no CNVM Meds: - Prednisone 10 mg currently(started at 80 mg) Impression/PLAN: - Ddx includes AZOOR, sarcoidosis; relentless placoid chorioretinitis, birdshot chorioretinopathy (though no leakage on FA), less likely infectious such as TB, syphilis, less likely PIC/MFC spectrum - W/u negative syphilis, TB, ABUNDIO Hla-a29 - improved on po prednisone - inactive today on 10 mg prednisone, would need custodial immunosuppression, - Ozurdex Both Eyes vs stay on 10 mg prednisone for now - Refer to Rhuem,suggest to start Humira given the posterior uveitis - taper to 5 mg prednisone for 2 then 2.5 mg for 2 weeks then stop -encouraged close monitoring of BS checked it once [phone] would like him to check it more frequently PCP is aware that he is on prednisonen I have confirmed and edited as necessary the relevant HPI, ophthalmic history, ROS, and the neuro exam findings as obtained by others. I have seen and examined Michelle Sutton. I have discussed the case and the management of this patient's care with the Resident/Fellow, if applicable. I also have reviewed and agree with the assessment and plan as stated above and agree with all of its relevant components. documented in this encounter [facility] 06-03-2024 Note HNO ID: [id number] Author: RANDALL HUGGINS MD Service: ? Author Type: Physician Type: Progress Notes Filed: 06/03/2024 11:40 Note Text: Here for f/u regarding probable AZOOR Improving symptoms Still with some flashes, but improving Posterior uveitis, both eyes Course: - Noticing gradual temporal visual field deficit OU x years sometimes a/w shimmering edges - A few months ago, started having pressure OU, initially started with OS but now OD is worsening as well - Burning sensation also present but more intermittent - better on po prednisone Workup: - none to date ROS: POSITIVE - chronic tremor in left hand, rare lip ulcer, occasional orthostatic dizziness, tinnitus x years (has seen ENT, 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); remote h/o chlamydia as a teen but no other known STI exposure; has a pet dog NEGATIVE - denies any recent weight loss/gain, fevers/chills, night sweats, fatigue, generalized weakness, easy bruising/bleeding, intolerance to heat or cold, sicca symptoms, nasal ulcers, oral ulcers, genital ulcers, difficulty swallowing, chest pain, shortness of breath, wheezing, cough, blood in sputum, nausea, vomiting, abdominal pain, diarrhea, changes in bowel or bladder patterns, change in urine, weakness/numbness/tingling of limbs/digits, muscle pain, joint aches/pains, rash, hives, sun sensitivity, hair loss, skin discoloration, headache, seizure, hearing loss, depression, anxiety, enlarged lymph nodes. Denies recent foreign travel. Not a leonie, does not eat game Imaging: - 05/05/24: - FAF: confluent area of hypoAF in peripapillary area with hypoAF spots centered around the nerve; all areas of hypoAF are surrounded by a rim of hyperAF - FA: peripapillary window defect OU and staining of peripheral CR lesions, no vascular leakage - OCT: atrophy peripapillary and in areas of CR lesions; punctate opacities in vitreous cavity c/w cells; mild ERM Left eye -06/03/24 FAF improved hyperAF Both Eyes, OCT improved EZ Both Eyes, OCTA - no CNVM Meds: - Prednisone 50 mg (started at 80 mg) Impression/PLAN: - Ddx includes AZOOR, sarcoidosis; relentless placoid chorioretinitis, birdshot chorioretinopathy (though no leakage on FA), less likely infectious such as TB, syphilis, less likely PIC/MFC spectrum - W/u negative syphilis, TB, ABUNDIO Hla-a29 - improved on po prednisone - taper by 10 mg a week - precert ozurdex Both Eyes -encouraged close monitoring of BS checked it once [phone] would like him to check it more frequently PCP is aware that he is on prednisonen I have confirmed and edited as necessary the relevant HPI, ophthalmic history, ROS, and the neuro exam findings as obtained by others. I have seen and examined Michelle Sutton. I have discussed the case and the management of this patient's care with the Resident/Fellow, if applicable. I also have reviewed and agree with the assessment and plan as stated above and agree with all of its relevant components. [facility] 06-03-2024 Note Date of Procedure 06/03/2024. Communications Representative Information Wood Coater: OREN. Interpretation Right Eye Findings include Nonperfusion (Deep Plexus). Left Eye Findings include Nonperfusion (Deep Plexus). [facility] 06-03-2024 History of Present illness Narrative Here for f/u regarding probable AZOOR Improving symptoms Still with some flashes, but improving Posterior uveitis, both eyes Course: - Noticing gradual temporal visual field deficit OU x years sometimes a/w shimmering edges - A few months ago, started having pressure OU, initially started with OS but now OD is worsening as well - Burning sensation also present but more intermittent - better on po prednisone Workup: - none to date ROS: POSITIVE - chronic tremor in left hand, rare lip ulcer, occasional orthostatic dizziness, tinnitus x years (has seen ENT, 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); remote h/o chlamydia as a teen but no other known STI exposure; has a pet dog NEGATIVE - denies any recent weight loss/gain, fevers/chills, night sweats, fatigue, generalized weakness, easy bruising/bleeding, intolerance to heat or cold, sicca symptoms, nasal ulcers, oral ulcers, genital ulcers, difficulty swallowing, chest pain, shortness of breath, wheezing, cough, blood in sputum, nausea, vomiting, abdominal pain, diarrhea, changes in bowel or bladder patterns, change in urine, weakness/numbness/tingling of limbs/digits, muscle pain, joint aches/pains, rash, hives, sun sensitivity, hair loss, skin discoloration, headache, seizure, hearing loss, depression, anxiety, enlarged lymph nodes. Denies recent foreign travel. Not a leonie, does not eat game Imaging: - 05/05/24: - FAF: confluent area of hypoAF in peripapillary area with hypoAF spots centered around the nerve; all areas of hypoAF are surrounded by a rim of hyperAF - FA: peripapillary window defect OU and staining of peripheral CR lesions, no vascular leakage - OCT: atrophy peripapillary and in areas of CR lesions; punctate opacities in vitreous cavity c/w cells; mild ERM Left eye -06/03/24 FAF improved hyperAF Both Eyes, OCT improved EZ Both Eyes, OCTA - no CNVM Meds: - Prednisone 50 mg (started at 80 mg) Impression/PLAN: - Ddx includes AZOOR, sarcoidosis; relentless placoid chorioretinitis, birdshot chorioretinopathy (though no leakage on FA), less likely infectious such as TB, syphilis, less likely PIC/MFC spectrum - W/u negative syphilis, TB, ABUNDIO Hla-a29 - improved on po prednisone - taper by 10 mg a week - precert ozurdex Both Eyes -encouraged close monitoring of BS checked it once [phone] would like him to check it more frequently PCP is aware that he is on prednisonen I have confirmed and edited as necessary the relevant HPI, ophthalmic history, ROS, and the neuro exam findings as obtained by others. I have seen and examined Michelle Sutton. I have discussed the case and the management of this patient's care with the Resident/Fellow, if applicable. I also have reviewed and agree with the assessment and plan as stated above and agree with all of its relevant components. documented in this encounter [facility] 06-03-2024 Note Date of Procedure 06/03/2024. Communications Representative Information Wood Coater: OREN. OCT Macula Interpretation Right Eye Abnormal foveal contour. Findings include IS/OS junction. Left Eye Abnormal foveal contour. Findings include IS/OS junction. Interval Change Right Eye Better. Left Eye Better. [facility] 06-03-2024 Note Date of Procedure 06/03/2024. Communications Representative Information Wood Coater: OREN. Disc Right Eye Normal. Left Eye Normal. Macula Right Eye RPE mottling. Left Eye RPE mottling. Periphery Right Eye Pigmentation. Left Eye Pigmentation. [facility] 06-03-2024 Note Date of Procedure 06/03/2024. Communications Representative Information Wood Coater: OREN. Interpretation Right Eye Hyperfluorescence, Hypofluorescence. Left Eye Hyperfluorescence, Hypofluorescence. Notes Improved hyper AF [facility] 05-17-2024 Telephone encounter Note Done. I emailed him the tapering instructions as well as his next appt date and asked him to call back if he had any questions. [facility] 05-17-2024 Miscellaneous Notes Done. I emailed him the tapering instructions as well as his next appt date and asked him to call back if he had any questions. Janeen- can you let him know his labs were normal and to start the prednisone that was called in. We are in surgery all day today. patient calling on his lab results [phone] documented in this encounter [facility] 05-17-2024 Telephone encounter Note Janeen- can you let him know his labs were normal and to start the prednisone that was called in. We are in surgery all day today. [facility] 05-16-2024 Telephone encounter Note patient calling on his lab results [phone] [facility] Work Phone: 05-13-2024 Note Date of Procedure 05/05/2024. Communications Representative Information Wood Coater: ROYCE. Start time: 10:38 AM. Stop time: 10:38 AM. Interpretation Right Eye Hyperfluorescence, Hypofluorescence. Left Eye Hyperfluorescence, Hypofluorescence. [facility] 05-13-2024 Note Date of Procedure 05/05/2024. Communications Representative Information Wood Coater: ROYCE. Start time: 10:38 AM. Stop time: 10:38 AM. 24g IV catheter inserted into left AC vein. 2.5 cc's 10% NaFl injected. No complications. Catheter removed, intact. Patient tolerated. Gin Coronel RN 05/05/2024 10:26 AM . Arm to Retina Circulation Time Normal. AV Transit Times Normal. Additional Notes Right Eye Staining, Window defect. No neovascularization on views obtained, No abnormal disc fluorescence. Left Eye Staining, Window defect. No neovascularization on views obtained, No abnormal disc fluorescence. [facility] 05-13-2024 Note Date of Procedure 05/05/2024. Communications Representative Information Wood Coater: ROYCE. Start time: 10:38 AM. Stop time: 10:38 AM. OCT Macula Interpretation Right Eye Normal foveal contour. Findings include PED, IS/OS junction, RPE Irregularity, Atrophy; Negative for Intraretinal fluid, Subretinal fluid, PVD. Left Eye Normal foveal contour. Findings include Intraretinal fluid, Subretinal fluid, PED, Epiretinal membrane, IS/OS junction, Atrophy; Negative for PVD. Interval Change Right Eye Initial. Left Eye Stable. [facility] 05-05-2024 Note HNO ID: [id number] Author: RANDALL HUGGINS MD Service: ? Author Type: Physician Type: Progress Notes Filed: 05/13/2024 08:59 Note Text: New patient referred from [facility] No records available Posterior uveitis, both eyes Course: - Noticing gradual temporal visual field deficit OU x years sometimes a/w shimmering edges - A few months ago, started having pressure OU, initially started with OS but now OD is worsening as well - Burning sensation also present but more intermittent - 2023: Workup: - none to date ROS: POSITIVE - chronic tremor in left hand, rare lip ulcer, occasional orthostatic dizziness, tinnitus x years (has seen ENT, 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); remote h/o chlamydia as a teen but no other known STI exposure; has a pet dog NEGATIVE - denies any recent weight loss/gain, fevers/chills, night sweats, fatigue, generalized weakness, easy bruising/bleeding, intolerance to heat or cold, sicca symptoms, nasal ulcers, oral ulcers, genital ulcers, difficulty swallowing, chest pain, shortness of breath, wheezing, cough, blood in sputum, nausea, vomiting, abdominal pain, diarrhea, changes in bowel or bladder patterns, change in urine, weakness/numbness/tingling of limbs/digits, muscle pain, joint aches/pains, rash, hives, sun sensitivity, hair loss, skin discoloration, headache, seizure, hearing loss, depression, anxiety, enlarged lymph nodes. Denies recent foreign travel. Not a leonie, does not eat game Imaging: - 05/05/24: - FAF: confluent area of hypoAF in peripapillary area with hypoAF spots centered around the nerve; all areas of hypoAF are surrounded by a rim of hyperAF - FA: peripapillary window defect OU and staining of peripheral CR lesions, no vascular leakage - OCT: atrophy peripapillary and in areas of CR lesions; punctate opacities in vitreous cavity c/w cells; mild ERM OS Meds: - None Impression/PLAN: - Ddx includes AZOOR, sarcoidosis; relentless placoid chorioretinitis, birdshot chorioretinopathy (though no leakage on FA), less likely infectious such as TB, syphilis, less likely PIC/MFC spectrum - Recommend workup including syphilis, TB, ABUNDIO, Chest CT pending ABUNDIO, CMP, CBC - Once infectious labs result, if negative, would start PO prednisone weekly taper 80 - In interim, would start Durezol QID or PF q2h OU - F/u in 4 weeks -diabetic so would have to carefully watch BS PCP Ernesto Hull I have confirmed and edited as necessary the relevant HPI, ophthalmic history, ROS, and the neuro exam findings as obtained by others. I have seen and examined Mcihelle Spencerder. I have discussed the case and the management of this patient's care with the Resident/Fellow, if applicable. I also have reviewed and agree with the assessment and plan as stated above and agree with all of its relevant components. [facility] 05-05-2024 History of Present illness Narrative New patient referred from [facility] No records available Posterior uveitis, both eyes Course: - Noticing gradual temporal visual field deficit OU x years sometimes a/w shimmering edges - A few months ago, started having pressure OU, initially started with OS but now OD is worsening as well - Burning sensation also present but more intermittent - 2023: Workup: - none to date ROS: POSITIVE - chronic tremor in left hand, rare lip ulcer, occasional orthostatic dizziness, tinnitus x years (has seen ENT, 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); remote h/o chlamydia as a teen but no other known STI exposure; has a pet dog NEGATIVE - denies any recent weight loss/gain, fevers/chills, night sweats, fatigue, generalized weakness, easy bruising/bleeding, intolerance to heat or cold, sicca symptoms, nasal ulcers, oral ulcers, genital ulcers, difficulty swallowing, chest pain, shortness of breath, wheezing, cough, blood in sputum, nausea, vomiting, abdominal pain, diarrhea, changes in bowel or bladder patterns, change in urine, weakness/numbness/tingling of limbs/digits, muscle pain, joint aches/pains, rash, hives, sun sensitivity, hair loss, skin discoloration, headache, seizure, hearing loss, depression, anxiety, enlarged lymph nodes. Denies recent foreign travel. Not a leonie, does not eat game Imaging: - 05/05/24: - FAF: confluent area of hypoAF in peripapillary area with hypoAF spots centered around the nerve; all areas of hypoAF are surrounded by a rim of hyperAF - FA: peripapillary window defect OU and staining of peripheral CR lesions, no vascular leakage - OCT: atrophy peripapillary and in areas of CR lesions; punctate opacities in vitreous cavity c/w cells; mild ERM OS Meds: - None Impression/PLAN: - Ddx includes AZOOR, sarcoidosis; relentless placoid chorioretinitis, birdshot chorioretinopathy (though no leakage on FA), less likely infectious such as TB, syphilis, less likely PIC/MFC spectrum - Recommend workup including syphilis, TB, ABUNDIO, Chest CT pending ABUNDIO, CMP, CBC - Once infectious labs result, if negative, would start PO prednisone weekly taper 80 - In interim, would start Durezol QID or PF q2h OU - F/u in 4 weeks -diabetic so would have to carefully watch BS PCP Ernesto Hull I have confirmed and edited as necessary the relevant HPI, ophthalmic history, ROS, and the neuro exam findings as obtained by others. I have seen and examined Michelle Herman. I have discussed the case and the management of this patient's care with the Resident/Fellow, if applicable. I also have reviewed and agree with the assessment and plan as stated above and agree with all of its relevant components. documented in this encounter [facility] Evaluation note No assessment inform ation available [facility] Work Phone: Evaluation note Diagnosis Multifocal choroiditis of both eyes- Primary [facility] Diagnosis Multifocal choroiditis of both eyes [facility] Diagnosis Multifocal choroiditis of both eyes [facility] (narrative)No reason for referral information availableThe [facility] Work Phone: Chief Complaint and Reason for Visit Chief Complaint Admit Date E-ORDER March 24, 2024 3: 53pm Summary Purpose Family History No Family History Records FoundNo Family History Records Found Advance Directives No Advanced Directives Records FoundNo Advanced Directives Records Found Additional Source Comments Goals (unrecognized section and content) Goals may be documented in a n alternate sectionGoals may be documented in an alternate sectionGoals may be documented in an alternate section Care Teams (unrecognized sec tion and content) Team Status: Active Member Role Status Dates Dr. Ernesto Hull MD Primary Care Provider Active Team Status: Inactive Member Role Status Dates Dr. Ernesto Hull MD Primary Care Provide r, Attending Provider, Referring Provider Active Cargo Mate Relationship Specialty Start Date End Date Robert Pak MD [address], [place] [address] Referring Ophthalmology 03/07/24 Cargo Mate Relationship Specialty Start Date End Date Robert Pak MD [address], [place] [address] Referring Ophthalmology 03/07/24 Cargo Mate Relationship Specialty Start Date End Date Robert Pak MD [address] [place], [place] [id number] Referring Ophthalmology 03/07/24 Team Status: Inactive Member Role Status Dates Dr. Ernesto Hull MD Primary Care Provider Active Start: March 21, 2024 End: March 21, 2024 Dr. Ernesto Hull MD Attending Provider Active St art: March 21, 2024 End: March 21, 2024 Dr. Ernesto Hull MD Referring Provider Active St art: March 21, 2024 End: March 21, 2024 Team Status: Inactive Member Role Status Dates Dr. Ernesto Hull MD Primary Care Provider Active Start: March 24, 2024 End: March 24, 2024 Dr. Ernesto Hull MD Attending Provider Active St art: March 24, 2024 End: March 24, 2024 Dr. Ernesto Hull MD Referring Provider Active St art: March 24, 2024 End: March 24, 2024 Team Status: Inactive Member Role Status Dates Dr. Ernesto Hull MD Primary Care Provider Active Start: June 23, 2024 End: June 23, 2024 Dr. Ernesto Hull MD Attending Provider Active St art: June 23, 2024 End: June 23, 2024 Dr. Ernesto Hull MD Referring Provider Active St art: June 23, 2024 End: June 23, 2024 Cargo Mate Relationship Specialty Start Date End Date Robert Pak MD [address] [place] [address] Referring Ophthalmology 03/07/24 Source Comments (unrecognize d section and content) In the event this informatio n is protected by the Federal Confidentiality of Alcohol and Drug Abuse Patient Records regulations: The Federal rules restrict any use of the information to criminally investigate or prosecute any alcohol or drug abuse patient.[facility] the event this information is protected by the Federal Confidentiality of Alcohol and Drug Abuse Patient Records regulations: The Federal rules restrict any use of the information to criminally investigate or prosecute any alcohol or drug abuse patient.[facility] the event this information is protected by the Federal Confidentiality of Alcohol and Drug Abuse Patient Records regulations: The Federal rules restrict any use of the information to criminally investigate or prosecute any alcohol or drug abuse patient.[facility] the event this information is protected by the Federal Confidentiality of Alcohol and Drug Abuse Patient Records regulations: The Federal rules restrict any use of the information to criminally investigate or prosecute any alcohol or drug abuse patient.[facility] System[facility] the event this information is protected by the Federal Confidentiality of Alcohol and Drug Abuse Patient Records regulations: The Federal rules restrict any use of the information to criminally investigate or prosecute any alcohol or drug abuse patient.[facility] Reason for Visit (unrecogniz ed section and content) Reason Comments multifocal Chorioretinis Eval Reason Comments lab results Reason Comments Multifocal Chorioretinitis Follow Up Lv -05/05/2024 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 DATE CREATED AUTHOR AUTHOR'S ORGANIZ ATION 09/22/2024 [facility] FOR RECORDS PERTAINING TO PATIENTS WHO ARE OR HAVE BEEN ENROLLED IN A CHEMICAL DEPENDENCY/SUBSTANCEABUSE PROGRAM, SOME INFORMATION MAY BE OMITTED. This clinical summary was aggregated from multiple sources. Caution should be exercised in using it in the provision of clinical care. This summary normalizes information from multiple sources, and as a consequence, information in this document may materially change the coding, format and clinical context of patient data. In addition, data may be omitted in some cases. CLINICAL DECISIONS SHOULD BE BASED ON THE PRIMARY CLINICAL RECORDS. [employer] [facility]. provides no warranty or guarantee of the accuracy or completeness of information in this document.
== END | disposition home or self-care (01) ==
LOC: MFPLAB 17:01
PROVIDERS: PCP Family Medicine; Referring Provider Family Medicine; Visit Provider Family Medicine
DX: E11.59 Type 2 diabetes mellitus with other circulatory complications (principal)
CPT/HCPCS: 36415; 80053; 82043; 82570; 83036; 84443; 85025